=== PATIENT | female | born 1940 | race Caucasian/White ===

== ENCOUNTER → 2016-11-01 16:47 | Outpatient (CLI) | payer MEDICARE ==
[2016-10-08 13:16] VITALS: BMI 28.3
[~2016-11-01 16:47] MED LIST: ASPIRIN EC81 M1 PO; BUMEX 1 MG TAB1 MG PO; BUMEX2 MG PO; CORDARONE200 MG; CORDARONE200 MG PO; COREG12.5 MG PO; DEMADEX10 MG; DEMADEX10 MG PO; FERREX 150 PLUS1 CAP PO; FLORAJEN3 CAPS460 MG PO; GLIPIZIDE10 MG PO; GLUCOTROL XL 1010 MG PO; IPRAT-ALBUT 0.5-3 ML INH; ISOSORBIDE DINI20 MG; ISOSORBIDE DINI20 MG PO; PRINIVIL20 MG PO; PROTONIX40 MG PO; ROCALTROL0.25 MCG PO; ROCEPHIN 1 GM/D51 G1 IV; SYNTHROID150 MCG PO; SYNTHROID75 MCG PO; VIBRAMYCIN 100100 MG PO; VITAMIN D31000 UNIT PO; ZESTRIL40 MG PO; ZOCOR20 MG PO
[2016-11-01 17:15] LABS: BASOPHILS 0.9 % (0.0-2.0); EOSINOPHILS 2.3 % (0-7); HEMATOCRIT 29.2 % (36.0-48.0); HEMOGLOBIN 9.1 g/dL (12-16); IMMATURE GRANULOCYTES 0.5 % (0-5); LYMPHOCYTES 25.5 % (15-50); MCH 30.2 pg (26.0-34.0); MCHC 31.2 g/dL (31.0-37.0); MEAN PLATELET VOLUME 10.8 fL (7.4-10.4); MONOCYTES 11.1 % (2-11); NEUTROPHILS 59.7 % (40-80); PLATELET COUNT 147 10x3/uL (130-400); RBC 3.01 10x6/uL (4.00-5.40); RDW 17.6 % (11.5-14.5); WBC 2.2 10x3/uL (4.8-10.8)
== END | disposition home or self-care (01) ==
LOC: D.LABREF 16:47
PROVIDERS: Internal Medicine Hematology & Oncology
DX: N18.4 Chronic kidney disease, stage 4 (severe) (principal); I51.7 Cardiomegaly; D64.9 Anemia, unspecified

== ENCOUNTER → 2016-11-04 15:02 | Outpatient (CLI) | payer MEDICARE ==
[2016-10-08 13:16] VITALS: BMI 28.3
[2016-11-04 15:31] LABS: BASOPHILS 1.5 % (0.0-2.0); HEMATOCRIT 27.2 % (36.0-48.0); HEMOGLOBIN 8.5 g/dL (12-16); IMMATURE GRANULOCYTES 0.5 % (0-5); MCH 30.5 pg (26.0-34.0); MCHC 31.3 g/dL (31.0-37.0); MCV 97.5 fL (80.0-100.0); MEAN PLATELET VOLUME 11.3 fL (7.4-10.4); MONOCYTES 10.5 % (2-11); NEUTROPHILS 64.5 % (40-80); PLATELET COUNT 126 10x3/uL (130-400); RBC 2.79 10x6/uL (4.00-5.40); RDW 17.8 % (11.5-14.5)
== END | disposition home or self-care (01) ==
LOC: D.LABREF 15:02
PROVIDERS: Internal Medicine Hematology & Oncology
DX: N18.4 Chronic kidney disease, stage 4 (severe) (principal)

== ENCOUNTER 2016-11-11 08:08 | Day surgery (SDC) | payer MEDICARE ==
[~2016-11-11] VITALS: Ht 160 cm; Wt 63.5 kg
[~2016-11-11 08:08] MED LIST changes: -ZESTRIL40 MG PO
[2016-11-11] MEDS ORDERED: BUMEX 1 MG TAB1 MG PO (08:47)
[2016-11-11 08:58] VITALS: BP 172/80; Ht 160 cm; Wt 63.5 kg
--- NOTE | 2016-11-11 09:59 | NUR ---
3203 DR. JOEL TO SEE PATIENT AND MARKED RIGHT ARM RESERVED. CALLED CYN IN SURGERY TO INFORM RIGHT ARM FISTULA TODAY. IV STARTED TO LEFT WRIST AND BLOOD SENT TO LAB. DR. JOEL INFORMED PATIENT TOOK ASPIRIN 81 MG YESTERDAY AM. PATIENT HAS BRUISES OVER LEGS AND ARMS AND CHEST SHE STATES FROM JUST BEING IN THE HOSPITAL. PATIENT STABLE A WAITING FOR SURGERY
--- NOTE | 2016-11-11 10:08 | NUR ---
[address] JOEL PATIENT IS COMPLAINING OF BOTH CALVES HURTING, WANTS US TO MASSAGE THEM. DR. JOEL STATED NO MASSAGE. GIVEN TYLENOL FOR PAIN WHICH HAS HELPED
[2016-11-11 10:16] LABS: BASOPHILS 0.6 % (0.0-2.0); EOSINOPHILS 1.4 % (0-7); HEMATOCRIT 29.6 % (36.0-48.0); HEMOGLOBIN 9.4 g/dL (12-16); IMMATURE GRANULOCYTES 0.3 % (0-5); LYMPHOCYTES 15.1 % (15-50); MCH 30.3 pg (26.0-34.0); MCHC 31.8 g/dL (31.0-37.0); MCV 95.5 fL (80.0-100.0); MEAN PLATELET VOLUME 11.4 fL (7.4-10.4); MONOCYTES 11.1 % (2-11); NEUTROPHILS 71.5 % (40-80); PLATELET COUNT 138 10x3/uL (130-400); RDW 18.1 % (11.5-14.5); WBC 3.5 10x3/uL (4.8-10.8)
[2016-11-11 10:39] LABS: APTT 31.7 SECONDS (22.8-39.4); INR 1.23 (0.85-1.17); PROTIME 15.4 SECONDS (11.6-15.0)
[2016-11-11 10:41] LABS: ANION GAP 14.2 mmol/L (8-16); CALCIUM 8.1 mg/dL (8.5-10.1); CARBON DIOXIDE 27.2 mmol/L (21.0-32.0); CREATININE - SERUM 3.9 mg/dL (0.6-1.3); POTASSIUM - SERUM 5.4 mmol/L (3.5-5.1)
[2016-11-11] MEDS ORDERED: ZESTRIL40 MG PO (10:57)
--- NOTE | 2016-11-11 10:57 | NUR ---
1055 PATIENTS SON WENT OVER PATIENTS MEDS WITH NURSE BUT NURSE ALSO CALLED PATIENTS PHARMACY AND HAD SOME CONFLICTS SO CALLED SON ABDIEL TO BRING PATIENTS PILL BOTTLES AND HE BROUGHT ONLY LISINOPRIL TO NURSE. UNSURE OF PATIENTS MEDS. CALLED DR. CHARLTON ABOUT BLOOD SUGAR OF 74, NO NEW ORDERS NOTED
--- NOTE | 2016-11-11 11:45 | NUR ---
1130 PATIENT MORE DROWSY, WILL AROUSE, NOT SWEATY OR ANY COMPLAINTS VOICED, RECHECKED BLOOD SUGAR AT 69, INFORMED ANESTHESIA, ORDERED / AMP [id number]
--- NOTE | 2016-11-11 15:40 | NUR ---
OPA IN AIRWAY ON ADMIT
--- NOTE | 2016-11-11 16:33 | NUR ---
1600 BACK FROM RT ARM FISTULA CREATION. SOME SLEEPY BUT ROUSES. RESP EVEN AND NONLABORED. DENIES PAIN OR NAUSEA.
--- NOTE | 2016-11-11 19:10 | NUR ---
1745 SON HERE AND WENT OVER DISCHARGE INSTRUCTIONS AND VERBALLY UNDERSTANDS. SCRIPT NORCO 5 GIVEN TO SON AND REVIEWED MEDICATION. IV DCD BLED FROM SITE SO WRAPPED LEFT ARM WITH COBAN. INSTRUCTED TO ELEVATED RT ARM ON PILLOW. APPOINTMENT GONE OVER.
--- NOTE | 2016-11-11 19:13 | NUR ---
1655 SLEEPY EVEN AFTER HAD LIQUIDS AND JUICE. BLOOD SUGAR 119.
--- NOTE | 2016-11-11 19:13 | NUR ---
1800 SON HERE STATING WE HAD MOMS BAG NEW OF MEDICATION. CALLED SARAH LARIOS R.N. AND SHE STATED ONLY HAD A BOTTLE OF LISINOPRIL AND DENTURES AND DENTURE COMBINATION PRESSER. NO OTHER MEDS. TOLD PATIENT AND ABDIEL SON CALLED NURSE THAT GOT HIM READY AND ONLY MED WAS LISINOPRIL HE ABDIEL THAN GAVE AN APOLOGY AND STATED MOM I MUST HAVE GRABBED THE WRONG MEDICATION BAG.
--- NOTE | 2016-11-11 19:16 | NUR ---
181 DISCHARGED TO HOME WITH SON AFTER DRESSED PATIENT. TO [facility].
--- NOTE | 2016-12-29 10:17 | OP ---
PATIENT NAME: SAMANTA MARI MEDICAL RECORD: [id number] :42 LOCATION:D.OPS ADMISSION DATE: SURGEON: GERALDINE JOEL MD DATE OF OPERATION: 11/11/2016 PREOPERATIVE DIAGNOSIS: End-stage renal disease without chronic access for hemodialysis. POSTOPERATIVE DIAGNOSIS: End-stage renal disease without chronic access for hemodialysis. PROCEDURE: Creation of right radiocephalic arteriovenous fistula for hemodialysis access. SURGEON: Geraldine Joel MD COUNTER INTELLIGENCE TECHNICIAN: None. BLOOD LOSS: Minimal. ANESTHESIA: General. COMPLICATIONS: None. The risks, possible complications, and alternatives to the procedure were explained to the patient. She elects to proceed. OPERATIVE COURSE: The patient was conveyed to the operating room electively on 11/11/2016. General anesthesia was induced by anesthesia staff. The right upper extremity was abducted at 90 degrees in relation to the patient's trunk. The right wrist was supinated. An axial incision was accomplished over the radial artery on the volar surface of the forearm and wrist. I dissected down to the radial artery which was encircled with vessel loops. I dissected down to a cephalic vein, which was of poor quality. It was ligated distally. I ligated some side branches and then divided the side branches between the ligatures. A longitudinal arteriotomy was accomplished after intravenous heparin was given. A side-to-end arteriovenous anastomosis was then fashioned with a running 7-0 Prolene suture. I then flushed out through the fistula. There was a good thrill within the fistula. Dania was added to the wound for additional hemostasis. The subcutaneous tissues were closed with interrupted 3-0 Vicryls. The skin was approximated with a running 3-0 Vicryl Rapide suture and then Dermabond. The patient was then extubated and conveyed to post-anesthesia care unit where she was in stable condition. She will be dismissed home on [place] for pain. I will see her in the office in 2-3 weeks. TRANSINT:[id number] Voice Confirmation ID: [id number] DOCUMENT ID: [id number] OPERATIVE REPORT [id number] SAMANTA MARI GERALDINE JOEL MD at 1017 CC: FE STRONG MD [id number] DICTATION DATE: 11/11/16 1512 RECORDING STUDIO INTERNSHIP: 11/11/16 1537 DEP SDC 11/11/16 [facility] [address] [place] [address]
== END 2016-11-11 18:10 | disposition home or self-care (01) ==
LOC: D.OPS 08:08
PROVIDERS: Anesthesiology
DX: N18.6 End stage renal disease (principal); E11.9 Type 2 diabetes mellitus without complications; I10 Essential (primary) hypertension; I50.9 Heart failure, unspecified

== ENCOUNTER 2016-11-28 07:02 | Inpatient (IN) | payer MEDICARE ==
[2016-11-28] VITALS (14 sets, daily range): BP systolic 98–130; BP diastolic 55–80; BMI 23.7
[~2016-11-28] VITALS: Ht 160 cm; Wt 69.1 kg
[~2016-11-28 07:02] MED LIST changes: +ZESTRIL40 MG PO
[2016-11-28 07:38] LABS: HEMATOCRIT 27.1 % (36.0-48.0); HEMOGLOBIN 8.7 g/dL (12-16); MCH 30.9 pg (26.0-34.0); MCHC 32.1 g/dL (31.0-37.0); MCV 96.1 fL (80.0-100.0); MEAN PLATELET VOLUME 10.9 fL (7.4-10.4); RBC 2.82 10x6/uL (4.00-5.40); RDW 18.9 % (11.5-14.5); WBC 2.4 10x3/uL (4.8-10.8)
[2016-11-28 07:41] LABS: PLATELET COUNT 99 10x3/uL (130-400)
[2016-11-28 07:47] LABS: APTT 31.3 SECONDS (22.8-39.4); INR 1.04 (0.85-1.17); PROTIME 13.4 SECONDS (11.6-15.0)
[2016-11-28 07:48] LABS: APPEARANCE CLEAR (CLEAR); BILIRUBIN NEGATIVE (NEGATIVE); COLOR YELLOW (YELLOW); GLUCOSE NEGATIVE (NEGATIVE); KETONE NEGATIVE (NEGATIVE); LEUKOCYTE ESTERASE NEGATIVE (NEGATIVE); NITRITE NEGATIVE (NEGATIVE); PROTEIN NEGATIVE (NEGATIVE); SPECIFIC GRAVITY 1.005 (1.005-1.020); UROBILINOGEN NORMAL (NORMAL)
[2016-11-28 07:59] LABS: ALBUMIN 1.9 g/dL (3.4-5.0); BILIRUBIN - TOTAL 0.54 mg/dL (0.2-1.3); CALCIUM 7.5 mg/dL (8.5-10.1); CARBON DIOXIDE 31.8 mmol/L (21.0-32.0); CREATININE - SERUM 4.5 mg/dL (0.6-1.3); POTASSIUM - SERUM 3.8 mmol/L (3.5-5.1); PROTEIN - SERUM 4.5 g/dL (6.4-8.2)
[2016-11-28 08:02] LABS: BASOPHILS 2 % (0.0-2.0); EOSINOPHILS 1 % (0-7); LYMPHOCYTES 13 % (15-50); MONOCYTES 2 % (2-11); NEUTROPHILS 81 % (40-80); PLATELET ESTIMATE DECREASED
[2016-11-28 08:03] LABS: ANISOCYTOSIS OCC; POIKILOCYTOSIS OCC
[2016-11-28 08:10] LABS: THYROID STIMULATING HORMONE 161.93 uIU/mL (0.36-3.74)
[2016-11-28 10:49] LABS: HEMOGLOBIN A1C 4.9 % (4.8-6.0)
[2016-11-28 14:53] LABS: HEMATOCRIT 29.9 % (36.0-48.0); HEMOGLOBIN 9.7 g/dL (12-16)
--- NOTE | 2016-11-28 15:56 | NUR ---
1530 REPORT TO JEFFRY TO GIVE TO KEKE
[2016-11-28 15:58] LABS: ERYTHROCYTE SEDIMENTATION RATE 4 mm/hr (0-30)
--- NOTE | 2016-11-28 18:25 | NUR ---
1015-RECIEVED PER FLOW [id number] TEMPERATURE CHECK-NO READING-WARM TO TOUCH-HEATED BLANKETS PLACED-INCONT DARK TARRY STOOL-POOR HISTORIAN-DR WHITFIELD AT BEDSIDE-SHOWN ALL SKIN/BRUISE TYPE TRAUMAS-R RADIAL WRIST-DR BALBUENA AT BEDSIDE AND ORDER RECIEVED-CONFIRMED WITH DR WHITFIELD TO GIVE 1 UNIT PRBC-BLOOD CONSENT OBTAINED FROM PT-PT STATED WANTS EVERYTHING DONE- 1045-R 20 G STARTED-PRBC STARTED TO INFUSE OVER 3HRS 1200-RETURN CALL FROM DR GUERRIER-PT REMAINED NPO FOR PLANNED EGD-CONSENT OBTAINED FROM PT -REQUESTED TO CALL SON-ATTEMPTED TELEPHONE NUMBER GIVEN-CONT BUSY SIGNAL-PT STATED OH YA-HE FORGOT TO PAY THE BILL-NURSING RADIO ADJUSTER NOTIFIED OF PLANNED BEDSIDE EGD 1330-YARN HANDLER AT BEDSIDE FOR E
--- NOTE | 2016-11-28 18:31 | NUR ---
1330-PRBC INFUSED-SITE SALINE LOCKED-TOBACCO PACKER AT [facility]-ASSESSED PT 1330-DR SINHA IN UNIT AND INFORMED OF CONSULT-GIVEN NAME AND RM NUMBER- [id number]-DR GUERRIER CALLED UNIT-INFORMED STAFF PT ATE AT HOME PRIOR TO ADMIT-REGLAN 10MG IVPB OVER 1 HR STARTED DIRECTED 1515-EGD SET UP IN PROGRESS 1600-PROCEDURE COMPLETED-
--- NOTE | 2016-11-28 18:36 | NUR ---
1700-PT AWAKE ALERT- 1800-REQUESTING PO PAIN MED -DR WHITFIELD NOTIFIED OF SAME AND UPDATE GIVEN-INFORMED OF NOT ABLE TO READ TEMPERATURE-INC SYNTHROID DOSE-EGD RESULTS
--- NOTE | 2016-11-28 19:20 | NUR ---
RECEIVED PATIENT AWAKE IN BED WITH ULTRASOUND BEING PERFORMED AT BEDSIDE. PATIENT DISORIENTED TO PLACE/TIME, DEMEANOR IS PLEASANT. EYES PERRLA AT 4MM WITH BRISK RESPONSE, SCLERA IS WHITE. ORAL/NASAL MUCOSA IS MOIST AND INTACT. S1/S2 NOTED WITH PATIENT NSR ON TELEMETRY, RYTHMIC AND REGULAR. PATIENT HAS PACEMAKER/DEFIBRILLATOR NOTED IN UPPER CHEST. LUNG SOUNDS ARE CLEAR ALL ROBLEDO, BREATHING IS EVEN AND EFFORTLESS. ABDOMEN IS SOFT AND ROUND, BOWEL SOUNDS ACTIVE X4. WEAKNESS NOTED IN ALL EXTREMITIES, ALL PULSES WEAKLY PALPABLE. PATIENT ABLE TO VOID ON BEDPAN, NO ERYTHEMA OR SWELLING NOTED IN GENITAL AREA. PATIENT HAS BRUISING ON UPPER CHEST LACERATIONS ON R ARM, PT STATES BRUISING FROM PREVIOUS FALL AND SCRATCHES ARE FROM PET AT HOME. SCD'S OFF, PATIENT COMPLAINED OF PAIN AND WANTED REMOVED. PATIENT STATES PAIN 2/10 ALL OVER, REPOSITIONING PROVIDED RELIEF. PATIENT DENIES OTHER NEEDS AT THIS TIME, ALL VSS AND WILL CONTINUE TO MONITOR.
--- NOTE | 2016-11-28 20:46 | CN ---
PATIENT NAME:SAMANTA OWEN MEDICAL RECORD: [id number] : 42 LOCATION:[id number] ADMIT DATE: 11/28/16 ACCOUNT: [id number] CONSULTING PHYSICIAN: RUBIN GUERRIER MD REFERRING PHYSICIAN: TALITA WHITFIELD DO DATE OF CONSULTATION: 11/28/2016 ATTENDING PHYSICIAN: Talita Whitfield MD HISTORY OF PRESENT ILLNESS: Ms. Owen is a pleasant 76-year-old woman with a history of hypertension, congestive heart failure, cardiac arrhythmia and chronic kidney disease, who was brought by EMS to the Emergency Department secondary to syncope associated with hypoglycemia. The paramedics had been to her house twice to address hypoglycemia. During her evaluation in the Emergency Room, she was noted to have black melenic stools. Her hemoglobin is relatively stable from the previous admissions. She has a history of pancytopenia. She sees physicians both here and in [place]. She has seen Dr. Pretty (surgical asst) and Dr. Arrieta (information clerk brokerage) in the recent past. PAST MEDICAL HISTORY: Congestive heart failure with exacerbation in September 2016, pancytopenia, diabetes mellitus, hypertension, congestive heart failure, cardiac arrhythmia, pneumonia and hypothyroidism. PAST SURGICAL HISTORY: Cholecystectomy, hernia repair, pacemaker/defibrillator placement, spinal fracture, but no followup surgeries and left shoulder fracture, no surgeries. ALLERGIES: No known drug allergies. HOME MEDICATIONS: Protonix 40 mg p.o. daily, DuoNeb inhaler, Ferrex 150 mg plus, Synthroid 150 mcg daily and acidophilus. FAMILY HISTORY: No known GI cancer. SOCIAL HISTORY: No alcohol. PHYSICAL EXAMINATION: VITAL SIGNS: Temperature is 97.9, heart rate 60, respirations 18, blood pressure 125/70. SKIN: No rash or jaundice, but multiple extensive ecchymoses across her chest and arms. HEENT: Conjunctivae are anicteric. Oral cavity is clear, edentulous. NECK: No JVD or bruits. CARDIOVASCULAR: Regular rhythm, normal rate. No murmur, rub or gallop. LUNGS: No wheezes or crackles. ABDOMEN: Normoactive bowel sounds, soft, nontender and nondistended. No appreciable hepatosplenomegaly or hepatic masses. EXTREMITIES: She has got lesions on her right wrist with a large eschar overlying a hematoma with some edema and surrounding erythema. LABORATORY DATA: White blood cell count 2.4, hemoglobin 8.7, hematocrit 27.1 and platelets of 99,000. MCV 96.1. INR is 1.04. PT is 13.4, PTT is 31.3. Sodium 145, potassium 3.8, chloride 107, CO2 of 31.8, BUN 63, creatinine 4.5, CONSULT REPORT [id number] SAMANTA OWEN glucose 124, calcium 7.5, total bilirubin 0.54, alkaline phosphatase 193, AST 26, ALT 17, total protein 4.5 and albumin 1.9. TSH is 161.93. Chest x-ray one view shows cardiomegaly and mild central vascular congestion with a small left pleural effusion, no pronounced interval changes or differences in inflation (compared to 10/03/2016). ASSESSMENT: 1. Melenic stools. She has been on iron supplementation, but rule out gastric or duodenal ulcer versus lower gastrointestinal etiology. 2. Pancytopenia with hemoglobin not far from baseline. 3. Hypothyroidism with markedly elevated TSH. 4. Chronic kidney disease. RECOMMENDATIONS: 1. Protonix 80 mg IV loading dose followed by 8 mg an hour drip. 2. Serial hemoglobin and hematocrit every 8 hours. 3. EGD. TRANSINT:[id number] Voice Confirmation ID: [id number] DOCUMENT ID: [id number] RUBIN GUERRIER MD at 2046 CC: TALITA WHITFIELD DO and FE PRETTY MD [id number] DICTATION DATE: 11/28/16 1559 DISABILITY REPRESENTATIVE: 11/28/162039 ADM IN [place] [id number] [place] [address]
--- NOTE | 2016-11-28 21:00 | NUR ---
NO VISITORS AT THIS TIME, PATIENT RESTING IN BED WITH EYES CLOSED AFTER ULTRASOUND. ALL VSS AND WILL CONTINUE TO MONITOR.
[2016-11-28 22:48] LABS: HEMATOCRIT 29.1 % (36.0-48.0); HEMOGLOBIN 9.3 g/dL (12-16)
--- NOTE | 2016-11-28 23:00 | NUR ---
REASSESSMENT COMPLETE PER FLOWSHEET, PATIENT RESTING IN BED WITH EYES CLOSED. PATIENT IS DISORIENTED TO TIME BUT IS AWARE OS SITUATION/LOCATION/SELF. BREATHING IS EVEN AND EFFORTLESS ON RA, OXYGEN SAT 95%. PATIENT REQUESTED PAIN MEDICATION DUE AT 0000 FOR PAIN, RATES PAIN 4/10 GENERALIZED ACHING. REPOSITIONED TO ASSIST WITH RELIEF, WILL REASSESS. DENIES OTHER NEEDS AT THIS TIME, WILL CONTINUE TO MONITOR.
[2016-11-29] VITALS (25 sets, daily range): BP systolic 91–134; BP diastolic 55–88; Ht 160 cm; Wt 69.1 kg
--- NOTE | 2016-11-29 01:00 | NUR ---
PATIENT RESTING IN BED WITH EYE CLOSED, BREATHING IS EVEN AND EFFORTLESS. FULL BED BATH/LINEN CHANGE PERFORMED, NO FURTHER NEEDS AT THIS TIME. ALL VSS AND WILL CONTINUE TO MONITOR.
--- NOTE | 2016-11-29 03:00 | NUR ---
REASSESSMENT COMPLETE PER FLOWSHEET, PATIENT IS RESTING IN BED WITH EYES CLOSED BREATHING IS EVEN AND EFFORTLESS. PATIENT IS DISORIENTED TO TIME BUT IS AWARE OF SITUATION/PLACE/PERSON. PATIENT O2 SAT IS 96% ON RA, PATIENT IS NSR ON TELEMETRY. PATIENT DENIES PAIN OR OTHER NEEDS AT THIS TIME, ALL VSS AND WILL CONTINUE TO MONITOR.
[2016-11-29 04:49] LABS: BASOPHILS 0.4 % (0.0-2.0); EOSINOPHILS 2.8 % (0-7); HEMOGLOBIN 9.6 g/dL (12-16); LYMPHOCYTES 12.8 % (15-50); MCH 30.1 pg (26.0-34.0); MEAN PLATELET VOLUME 10.9 fL (7.4-10.4); PLATELET COUNT 91 10x3/uL (130-400); RBC 3.19 10x6/uL (4.00-5.40); RDW 18.8 % (11.5-14.5); WBC 2.8 10x3/uL (4.8-10.8)
--- NOTE | 2016-11-29 05:00 | NUR ---
PATIENT RESTING IN BED WITH EYES CLOSED, BREATHING IS EVEN AND EFFORTLESS. PATIENT DENIES PAIN OR OTHER NEEDS AT THIS TIME, ALL VSS AND WILL CONTINUE TO MONITOR.
[2016-11-29 05:10] LABS: ALBUMIN 1.9 g/dL (3.4-5.0); ANION GAP 10.4 mmol/L (8-16); BILIRUBIN - TOTAL 0.45 mg/dL (0.2-1.3); CALCIUM 7.2 mg/dL (8.5-10.1); CARBON DIOXIDE 30.3 mmol/L (21.0-32.0); CREATININE - SERUM 4.3 mg/dL (0.6-1.3); MAGNESIUM - SERUM 1.9 mg/dL (1.8-2.4); PHOSPHOROUS 3.8 mg/dL (2.5-4.9); POTASSIUM - SERUM 3.7 mmol/L (3.5-5.1); PROTEIN - SERUM 4.5 g/dL (6.4-8.2)
--- NOTE | 2016-11-29 09:04 | NUR ---
PT AWAKE, SITTING UP EATING BREAKFAST. SON AT BEDSIDE. MORNING MEDICATIONS TAKEN WITH NO DIFFICULTY.
--- NOTE | 2016-11-29 09:28 | NUR ---
PT SPILLED ORANGE JUICE ON HER. BATH PROVIDED. NEW LINENS PROVIDED.
--- NOTE | 2016-11-29 10:06 | NUR ---
WHEN SPEAKING TO SON EARLIER HE ASKED ME ABOUT THE WOUND ON THE PATIENT'S RIGHT WRIST. HE ASKED IF THAT WAS HER FISTULA. NO INFORMATION REGARDING A FISTULA WAS PASSED ON TO ME IN REPORT. WE HAD BEEN TOLD IT WAS FROM A DOG SCRATCH. SON SAYS PT HAD RECENTLY BEEN TO [facility] FOR A FISTULA PLACEMENT. LOOKED UP PAST VISITS AND FOUND THAT PT HAD BEEN IN ON October TO SEE DR JOEL AND HAD A RIGHT WRIST RC FISTULA PLACED. PAGED DR BALBUENA TO LET HIM KNOW SINCE HE WAS ON CONSULT LIST TO SEE PATIENT THAT I WOULD BE CONTACTING DR JOEL ABOUT THIS PATIENT. AWAITING RETURN CALL FROM DR JOEL.
--- NOTE | 2016-11-29 11:20 | NUR ---
WOUND CARE NURSE IN TO SEE PATIENT AND ADDRESS WOUND AT RIGHT WRIST
--- NOTE | 2016-11-29 11:43 | NUR ---
WOUND CARE CONSULT: PT HAS MUCH BRUISING AND MANY SCABS FROM HEAD TO TOES. ON RIGHT WRIST THERE IS AN OPEN WOUND MEASURING 7CM X 2CM X 0.9CM. THERE IS OLD DRIED BLOOD AND SOME NECROTIC TISSUE NOTED. THERE IS AN ODOR. RIGHT FOREARM IS AN OPEN WOUND MEASURING 2.5CM X 2CM X 0.2CM. WOUND BED IS PINK AND EDGES ARE PEELING. COVERED BOTH WITH SILVER ALGINATE AND LOOSELY SECURED WITH KERLIX. WILL CONTINUE TO MONITOR
--- NOTE | 2016-11-29 11:51 | NUR ---
CALLED DR WHITFIELD OFFICE TO LET HIM KNOW OF GLUCOSE VALUE AND AMP D50 GIVEN. ASKED FOR PERAMETERS/ORDERS. SPOKE WITH MAXINE. ONLY NEW ORDER GIVEN WAS TO GIVE ORANGE JUICE AND CONTINUE TO MONITOR.
--- NOTE | 2016-11-29 12:53 | NUR ---
PT ASSISTED ON TO NEW BEDPAN FOR UA. SPECIMEN TAKEN TO LAB. PT C/O PAIN IN SIDE AND CHEST, ASKS FOR NORCO. STILL EATING HER LUNCH AT THIS TIME.
[2016-11-29 13:13] LABS: APPEARANCE HAZY (CLEAR); BACTERIA MANY /hpf (NONE SEEN); BILIRUBIN NEGATIVE (NEGATIVE); COLOR YELLOW (YELLOW); EPITHELIAL CELLS 0-5 /hpf (0-5); GLUCOSE NEGATIVE (NEGATIVE); KETONE NEGATIVE (NEGATIVE); LEUKOCYTE ESTERASE TRACE (NEGATIVE); MUCUS <1+ /lpf (NONE SEEN); NITRITE POSITIVE (NEGATIVE); PROTEIN 1+ mg/dL (NEGATIVE); RED CELLS - URINE 0-5 /hpf (0-5); UROBILINOGEN NORMAL (NORMAL); WHITE CELLS - URINE 0-5 /hpf (0-5)
[2016-11-29 13:15] LABS: CREATININE - URINE 36.8 mg/dL (30-125); PROTEIN - URINE 35.5 mg/dL (0.0-11.9)
--- NOTE | 2016-11-29 13:51 | NUR ---
SPOKE WITH DR JOEL. WANTS PT NPO AFTER MIDNIGHT IN CASE NEEDS TO DEBRIDE
--- NOTE | 2016-11-29 15:04 | CN ---
PATIENT NAME:SAMANTA MARI MEDICAL RECORD: [id number] : 44 LOCATION:[facility].2311 ADMIT DATE: 11/28/16 ACCOUNT: [id number] CONSULTING PHYSICIAN: PILAR BALBUENA MD REFERRING PHYSICIAN: TALITA WHITFIELD DO DATE OF CONSULTATION: 11/28/2016 Surgical Consultation REASON FOR CONSULTATION: Right wrist wound. HISTORY OF PRESENT ILLNESS: The patient was admitted to the hospital for severe hypoglycemia and fall. The patient was noted to have maroon-colored stool during her ER evaluation. The patient is very confused. She says that she has a dog wound on her right wrist that has been there for several weeks. By investigation in the chart, through chart review and discussion with the nurse and son, the patient had a fistula performed in the right wrist almost 3 weeks ago. The patient was just discharged from the hospital for an episode of CHF exacerbation. She complains of some pain at her right wrist. PAST MEDICAL HISTORY: Diabetes, hypertension, congestive heart failure, pacemaker, and recurrent pneumonia. PAST SURGICAL HISTORY: Gallbladder, hernia, pacemaker, right forearm fistula. ALLERGIES: No known drug allergies. HOME MEDICATIONS: Include carvedilol, Zocor, amiodarone, calcitriol, aspirin, cholecalciferol, Imdur, Bumex, and lisinopril. FAMILY HISTORY: Unobtainable. SOCIAL HISTORY: Unobtainable. REVIEW OF SYSTEMS: Unobtainable secondary to patient's confusion. PHYSICAL EXAMINATION: VITAL SIGNS: Temperature 97.9, heart rate 60, respirations 18, and blood pressure 125/70. GENERAL: This is a cachectic elderly female in mild distress. PSYCHIATRIC: She is confused and disoriented. EYES: Extraocular muscles are intact. EAR, NOSE, AND THROAT: Poor dentition. Dry mucous membranes. CARDIOVASCULAR: Normal sinus rhythm. PULMONARY: Clear to auscultation bilaterally. ABDOMEN: Soft, nontender, and nondistended. EXTREMITIES: There is a large 5 x 4 cm eschar over the right wrist. No palpable thrill. She has got severe ecchymosis of all 4 extremities. NEUROLOGIC: She is awake and alert, but confused. LABORATORY DATA: Reviewed. Please see electronic medical record for full list of laboratory values. IMAGING: Chest x-ray reviewed, which shows CHF with left pleural effusion. CONSULT REPORT [id number] SAMANTA MARI IMPRESSION: 1. A 76-year-old female admitted to the hospital with hypoglycemia, chronic renal failure, congestive heart failure, gastrointestinal bleed and right forearm postoperative wound. The patient has been admitted to the ICU. The patient is being followed by nephrology. GI has been consulted for evaluation of gastrointestinal bleeding. 2. Anemia. Continue serial H&H. 3. IV fluids. 4. Type and screen. 5. Right wrist wound, will likely need debridement. We will discuss with my partner, Dr. Smith. He returns on Tuesday for wound debridement and evaluation of the fistula. TRANSINT:[id number] Voice Confirmation ID: [id number] DOCUMENT ID: [id number] PILAR BALBUENA MD at 1504 CC: [id number] DICTATION DATE: 11/29/16 1216 MANUFACTURING MAINTENANCE MANAGER: 11/29/16 1454 ADM IN [facility] [address] [place] [address]
--- NOTE | 2016-11-29 16:46 | OP ---
PATIENT NAME: SAMANTA OWEN MEDICAL RECORD: [id number] :42 LOCATION:[facility] D.2311 ADMISSION DATE:11/28/16 SURGEON: RUBIN GUERRIER MD DATE OF OPERATION: 11/28/2016 PROCEDURE: EGD with biopsy. ATTENDING PHYSICIAN: John Freire MD INDICATIONS: Ms. Owen is a pleasant 76-year-old woman who was brought to the Emergency Department by EMS after multiple falls. She has been having melenic stools, has history of pancytopenia and her hemoglobin is near baseline. She has had no abdominal pain or hematemesis. She presents for inpatient EGD. PREMEDICATIONS: Total IV anesthesia (history of cardiac arrhythmia status post pacemaker placement, defibrillator and congestive heart failure), propofol 100 mg. INSTRUMENT: Olympus video gastroscope. PROCEDURE AND FINDINGS: After receiving informed consent, Ms. Owen's posterior pharynx was anesthetized with Cetacaine spray, placed in left lateral decubitus position and sedated as per anesthesia. After achieving adequate level of sedation, gastroscope was introduced per orally and advanced to the duodenum without difficulty. There was a small amount of retained old food in the esophagus as well as in the fundus of the stomach. There are no esophageal strictures present. A small hiatal hernia was noted. In the prepyloric region were 4 small mildly bleeding angioectasias that were cauterized with good results and hemostasis. There is minimal prepyloric and antral erythema and antral biopsies were obtained to rule out Helicobacter pylori. The fundus was obscured with old food. There were several waves of peristaltic activity noted in the stomach. Pylorus was patent and competent. Duodenal mucosa was without erythema or ulcers, appeared normal through the second portion. Gastroscope was then withdrawn. Ms. Owen tolerated the procedure well, no immediate complications. ASSESSMENT: 1. 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 2. Small hiatal hernia. 3. Four small bleeding angioectasias in the prepyloric region status post cauterization. 4. Mild gastritis. RECOMMENDATIONS: 1. Reglan 5 mg a.c. 2. Pepcid 40 mg p.o. b.i.d. 3. Diabetic full liquid diet. TRANSINT:[id number] Voice Confirmation ID: [id number] DOCUMENT ID: [id number] OPERATIVE REPORT [id number] SAMANTA OWEN TERRI MD at 1646 CC: [id number] DICTATION DATE: 11/28/16 162 CROP SCOUT: 11/28/162119 ADM IN [place] [id number] [place] [id number]
--- NOTE | 2016-11-29 16:53 | NUR ---
CM VISITED/ PATIENT AT THE BEDSIDE. SHE IS ALERT AND ORIENTED HOWEVER IS VERY EVASIVE W/ HER ANSWERS. SHE HAS A [place] ADDRESS LISTED. WHEN QUESTIONED SHE STATES SHE NO LONGER HAS THAT HOME. WHEN ASK HER NEW ADDRESS SHE DECLINED TO GIVE THAT INFORMATION. STATES SHE HAS A HOME IN [place]OWN. IT HAS NO STAIRS. STATES SHE HAD HOME HEALTH IN [place] AT ONE TIME BUT THEY STOP COMING BECAUSE SHE DID NOT HAVE A PCP. DENIES ANY DME. HAS MUTIPLE BRUISES W/ VARIOUS EXPLANATIONS OF HOW SHE OBTAINED THEM. WILL NOT DISCUSS W/ ANY DETAIL. STATES SHE DOES NOT HAVE FREQUENT FALLS. WILL ONLY ACKNOWLEDGE SHE HAS A SON. PCP- NONE PHARMACY- [facility]- A[facility]IEL [facility]AME[facility]- [phone]- NO ANSWER WHEN CALLED. COULD NOT LEAVE A MSG. FISTULA- PLACED 11/11/[address] JOEL SON HAS PROVIDED TRANSPORTATION AT DISCHARGE. PATIENT PLAN AT DISCHARGE IS TO HOME. DECLINING ANY HOME HEALTH SERVICES. STATES SHE NEEDS HELP OBTAINING A PCP.
--- NOTE | 2016-11-29 17:00 | NUR ---
PT SITTING UP IN BED EATING HER DINNER. ASKING FOR MORE PAIN MEDICATION. NEXT TIME CAN BE ADMINISTERED IS ALMOST 7PM, LET HER KNOW.
--- NOTE | 2016-11-29 19:15 | NUR ---
RECEIVED PATIENT IN BED WITH EYES CLOSED, ASSESSMENT COMPLETE PER FLOWSHEET. PATIENT IS DISORIENTED TO TIME BUT IS AWARE OF CURRENT SITUATION, DEMEANOR IS PLEASANT. EYES PERRLA @ 4MM WITH BRISK RESPONSE, SCLERA IS WHITE. ORAL/NASAL MUCOSA IS MOIST AND INTACT, TONGUE IS MIDLINE. S1/S2 NOTED WITH PATIENT NSR ON TELEMETRY, PATIENT HAS IMPLANTED PACEMAKER/DEFIBRILLATOR. BREATHING IS EVEN AND EFFORTLESS, LUNG SOUNDS CLEAR ALL ROBLEDO. ABDOMEN IS SOFT AND ROUND, NON-TENDER TO PALPATION. PATIENT USES BEDPAN FOR VOIDING, NO ERYTHEMA OR IRRITATION NOTED. WEAKNESS NOTED ALL EXTREMITIES, FULL ROM ALL EXTREMITIES. STATES PAIN 4/10 IN CHEST AREA "WHERE SHE FELL", PAIN MEDICATION GIVEN PRN AND WILL REASSESS. PATIENT HAS BRUISING/SORES PRESENT OVER WHOLE BODY, R WRIST LACERATION TO BE DEBRIDED IN AM. PATIENT DENIES OTHER NEEDS AT THIS TIME, ALL VSS AND WILL CONTINUE TO MONITOR.
--- NOTE | 2016-11-29 21:00 | NUR ---
NO VISITORS AT THIS TIME, PATIENT RESTING IN BED WITH EYES CLOSED. DENIES PAIN OR OTHER NEEDS AT THIS TIME, WILL CONTINUE TO MONITOR.
--- NOTE | 2016-11-29 22:40 | NUR ---
PATIENT UNABLE TO FIND COMFORTABLE POSITION, DEMANDED TO GET UP TO RECLINER AT BEDSIDE. ASSISTED TO CHAIR, SITTING UP PT STATES "MORE COMFORTABLE". PT ASKED TO REMIAN IN CHAIR "TO SLEEP", ALL VSS STABLE AND WILL CONTINUE TO MONITOR.
--- NOTE | 2016-11-29 23:00 | NUR ---
REASSESSMENT COMPLETE PER FLOWSHEET, PATIENT SITTING UP IN CHAIR AT BEDSIDE. PATIENT C/O OF DISCOMFORT AND PAIN 02/07, REPOSITIONED FOR COMFORT AND WILL EXPLORE OTHER OPTIONS. BREATHING IS EVEN AND UNLABORED, O2 SAT 97% DENIES OTHER NEEDS AT THIS TIME, ALL VSS AND WILL CONTINUE TO MONITOR.
[2016-11-30] VITALS (24 sets, daily range): BP systolic 84–130; BP diastolic 54–84
--- NOTE | 2016-11-30 00:05 | NUR ---
PATIENT RETURNED TO BED, ABLE TO AMBULATE WITH 1 PERSON ASSIST. GAIT IS UNSTEADY AND SHUFFLING. NO FURTHER NEEDS AT THIS TIME, ALL VSS AND WILL CONTINUE TO MONITOR.
--- NOTE | 2016-11-30 03:00 | NUR ---
REASSESSMENT COMPLETE PER FLOWSHEET, PATIENT LAYING IN BED WITH EYES OPEN WATCHING TV. PATIENT IS DISORIENTED TO TIME BUT AWARE OF SITUATION/PLACE/PERSON. BREATHING IS EVEN AND EFFORTLESS, OXYGEN SAT 98% ON RA. PATIENT C/O PAIN IN UPPER CHEST WHERE BRUISE IS LOCATED, RATES PAIN 6/10. PRN PAIN MEDICATION GIVEN AND PATIENT REPOSITIONED FOR COMFORT. PATIENT DENIES OTHER NEEDS AT THIS TIME, ALL VSS AND WILL CONTINUE TO MONITOR.
[2016-11-30 04:23] LABS: BASOPHILS 0.8 % (0.0-2.0); EOSINOPHILS 3.1 % (0-7); HEMATOCRIT 29.1 % (36.0-48.0); HEMOGLOBIN 9.4 g/dL (12-16); LYMPHOCYTES 12.7 % (15-50); MCH 30.2 pg (26.0-34.0); MCHC 32.3 g/dL (31.0-37.0); MCV 93.6 fL (80.0-100.0); MEAN PLATELET VOLUME 10.2 fL (7.4-10.4); MONOCYTES 7.3 % (2-11); NEUTROPHILS 76.1 % (40-80); PLATELET COUNT 79 10x3/uL (130-400); RBC 3.11 10x6/uL (4.00-5.40); RDW 18.8 % (11.5-14.5); WBC 2.6 10x3/uL (4.8-10.8)
--- NOTE | 2016-11-30 04:52 | NUR ---
PATIENT RESTING IN BED WITH EYES OPEN WATCHING TV, BREATHING IS EVEN AND EFFORTLESS. PATIENT REQUESTED SCD TAKEN OFF BECAUSE "THEY HURT MY LEGS", REMOVED BUT EXPLAINED TO PATIENT NEED TO WEAR OFTEN POSSIBLE. PATIENT STATES PAIN 2/10 IN CHEST, DOES NOT REQUIRE ANYTHING AT THIS TIME. NO FURTHER NEEDS AT THIS TIME, ALL VSS AND WILL CONTINUE TO MONITOR.
[2016-11-30 04:54] LABS: ALBUMIN 1.8 g/dL (3.4-5.0); ANION GAP 8.5 mmol/L (8-16); BILIRUBIN - TOTAL 0.5 mg/dL (0.2-1.3); CARBON DIOXIDE 30.5 mmol/L (21.0-32.0); CREATININE - SERUM 4.3 mg/dL (0.6-1.3); MAGNESIUM - SERUM 1.9 mg/dL (1.8-2.4); PHOSPHOROUS 4.4 mg/dL (2.5-4.9); PROTEIN - SERUM 4.6 g/dL (6.4-8.2)
--- NOTE | 2016-11-30 05:59 | NUR ---
PATIENT BS CHECKED RESULT WAS 78. PATIENT IS NPO FOR POSSIBLE DEBRIDEMENT IN AM, WILL RECHECK IN 30 MINS.
--- NOTE | 2016-11-30 07:14 | NUR ---
SHIFT ASSESSMENT COMPLETE. SEE FLOWSHEET FOR FINDINGS. PT RESTING QUIETLY. VOICES NO COMPLAINTS. TEMPERATURE OF 96.6 TEMPORAL. D5 1/2NS RUNNING AT 50ML/HR IN LEFT AC. NO SCD'S.
--- NOTE | 2016-11-30 10:09 | NUR ---
I ATTEMPTED TO VISIT WITH PATIENT REGARDING DISCHARGE PLANNING ASSESSMENT. PATIENT SAID THAT EVERYONE KEEPS ASKING HER QUESTIONS. SHE STATES SHE WANTS ME TO LEAVE HER ROOM AND STOP TALKING TO HER. SHE LITERALLY TOLD ME TO GET OUT OF HER ROOM. CM TO FOLLOW.
--- NOTE | 2016-11-30 10:36 | NUR ---
PT MOST RECENT BLOOD GLUCOSE IS 41. PT HAD BEEN NPO FOR POSSIBLE DEBRIDEMENT OF WOUND. NO DEBRIDEMENT TO BE PERFORMED. TRAY WAS ORDERED. PT WAS PROVIDED WITH GRAPE JUICE, CRACKERS AND PEANUTBUTTER REQUESTED. TRAY WAS ALSO GIVEN TO PATIENT. WILL CONTINUE TO MONITOR.
--- NOTE | 2016-11-30 11:27 | NUR ---
BLOOD GLUCOSE RECHECKED. READING OF 60. ENCOURAGED TO FINISH HER JUICE. SHE ASKED FOR MORE PEANUTBUTTER.
--- NOTE | 2016-11-30 12:30 | NUR ---
PT SITTING UP IN BED FOR LUNCH. SALAD PROVIDED SHE REQUESTED.
--- NOTE | 2016-11-30 12:57 | NUR ---
CALLED DR WHITFIELD REGARDING PT BLOOD SUGAR LEVELS AND MOVING TO THE FLOOR. IS NOT COMFORTABLE WITH PT LEAVING ICU AT THIS TIME. WILL CONTINUE TO MONITOR CLOSELY FOR HYPOGLYCEMIC EPISODES
--- NOTE | 2016-11-30 13:45 | NUR ---
PT SLEEPING AT THIS TIME. NO DISTRESS NOTED. BED LOW. SIDE RAILS X2
--- NOTE | 2016-11-30 15:27 | NUR ---
PT SITTING UP IN CHAIR AT BEDSIDE. HAVE ATTEMPTED TO CALL HER SON SEVERAL TIMES AT THE NUMBER WE HAVE LISTED, BUT IT IS ALWAYS BUSY. SHE DOES NOT KNOW OF ANY OTHER NUMBER TO REACH HIM BY. C/O PAIN AT LEVEL OF 9 IN CHEST AND SIDE.
--- NOTE | 2016-11-30 15:35 | NUR ---
PT ASKING ME TO GET OUT LONG ENOUGH TO GO BY HER HOUSE TO GET HER PURSE AND HER CELL PHONE. TOLD HER SHE HAD TO STAY IN THE HOSPITAL UNTIL WE CAN GET HER BLOOD SUGARS BETTER REGULATED. SHE THEN ASKED ME TO GO TO HER HOUSE TO GET HER THINGS. TOLD HER I WAS WORKING AND NOT ALLOWED TO GO TO PATIENT'S HOMES. SHE SAYS SHE LIVES AT [address] [place] [address] WITH HER SON AND THERE SHOULD BE A BLUE CAR AND A SILVER CAR THERE.
--- NOTE | 2016-11-30 17:18 | NUR ---
PT ASKING TO SEE THE DOCTOR. WANTS HIM TO COME BACK AND TELL HER WHEN SHE IS GOING HOME. DOES NOT REMEMBER HIM (DR JOEL) COMING TO SEE HER TODAY. ALSO DOES NOT RECOGNIZE THAT SHE IS IN THE SAME ROOM SHE WAS YESTERDAY BY SAYING "TURNER NEVER SEEN THIS ROOM BEFORE" AND "WHERE'S THE BIG PICTURE THAT IS SUPPOSED TO BE ON THE WALL, AND THE HEATER?" SAYS SHE NEEDS TO GET OUT OF HERE NOW. TRIED TO EXPLAIN THAT SHE HAS TO STAY UNTIL TOMORROW TO SEE IF THE DOCTOR FEELS SHE IS READY TO GO IF HER SUGARS ARE STEADY. WE STILL HAVE NOT BEEN ABLE TO REACH THE SON ON THE NUMBER PROVIDED.
--- NOTE | 2016-11-30 19:00 | NUR ---
REPORT RECIEVED, SHIFT ASSESSMENT COMPLETE, PT IS ALERT BUT CONFUSED, TO TIME AND SITUATION, ATTEMPTED TO REORIENT, ON RA WITH 97% O2 SAT. LUNGS CLEAR IN ALL LOBES, S1S2, CM-PACEMAKER, PATENT LEFT A/C PIC WITH D5 1/2 NS INFUSING VIA PUMP, ABDOMEN IS SOFT AND ROUND WITH HYPO BS, BP AT BEDSIDE, BRUISING AND SCABS NOTED ALL OVER BODY, NO EDEMA NOTED, ALL PPP, VSS, CALL LIGHT IN REACH
[2016-11-30 19:10] LABS: SPE - A/G RATIO 1.1 (0.7-1.7); SPE - ALBUMIN 2.4 g/dL (2.9-4.4); SPE - ALPHA-1 GLOBULIN 0.2 g/dL (0.0-0.4); SPE - ALPHA-2 GLOBULIN 0.3 g/dL (0.4-1.0); SPE - BETA GLOBULIN 0.6 g/dL (0.7-1.3); SPE - M-SPIKE 0.2 g/dL (Not Observed); SPE - TOTAL PROTEIN 4.5 g/dL (6.0-8.5)
--- NOTE | 2016-11-30 23:25 | NUR ---
PT RESTLESS AND AGITATED, PULLING AT LINES, DR. ANDREA NOTIFIED, NEW ORDERS RECIEVED
[2016-12-01] VITALS (17 sets, daily range): BP systolic 102–154; BP diastolic 65–96
--- NOTE | 2016-12-01 01:20 | NUR ---
PT RESTING AT THIS TIME, WILL CON'T TO MONITOR
--- NOTE | 2016-12-01 03:20 | NUR ---
REASSESSMENT COMPLETE, NO CHANGES NOTED, WILL CON'T TO MONITOR
--- NOTE | 2016-12-01 05:10 | NUR ---
PT AWAKE AT THIS TIME, STILL CONFUSED, ATTEMPTED TO REORIENT,
[2016-12-01 06:10] LABS: BASOPHILS 0.8 % (0.0-2.0); EOSINOPHILS 4.1 % (0-7); HEMATOCRIT 32.1 % (36.0-48.0); HEMOGLOBIN 10.3 g/dL (12-16); IMMATURE GRANULOCYTES 0.3 % (0-5); LYMPHOCYTES 10.6 % (15-50); MCH 30.1 pg (26.0-34.0); MCHC 32.1 g/dL (31.0-37.0); MCV 93.9 fL (80.0-100.0); MEAN PLATELET VOLUME 10.4 fL (7.4-10.4); NEUTROPHILS 77.2 % (40-80); RBC 3.42 10x6/uL (4.00-5.40); RDW 18.7 % (11.5-14.5)
[2016-12-01 06:15] LABS: PLATELET COUNT 108 10x3/uL (130-400); WBC 3.9 10x3/uL (4.8-10.8)
--- NOTE | 2016-12-01 06:30 | NUR ---
UPTO CHAIR AT THIS TIME,
[2016-12-01 06:37] LABS: ALBUMIN 2.2 g/dL (3.4-5.0); ANION GAP 11.5 mmol/L (8-16); BILIRUBIN - TOTAL 0.48 mg/dL (0.2-1.3); CALCIUM 7.6 mg/dL (8.5-10.1); CARBON DIOXIDE 28.8 mmol/L (21.0-32.0); CREATININE - SERUM 4.4 mg/dL (0.6-1.3); POTASSIUM - SERUM 4.3 mmol/L (3.5-5.1)
[2016-12-01 06:55] LABS: PROTEIN - SERUM 5.8 g/dL (6.4-8.2)
--- NOTE | 2016-12-01 07:00 | NUR ---
PT SITTING UP IN CHAIR AT BEDSIDE. IS AWAKE AND ALERT. TRYING TO GET OUT OF CHAIR, WANTS TO GO HOME.
--- NOTE | 2016-12-01 07:34 | NUR ---
PT UP IN CHAIR AT BEDSIDE. BREAKFAST TRAY PROVIDED. DR HILL HAS BEEN IN TO SEE PATIENT.
--- NOTE | 2016-12-01 09:27 | NUR ---
ORDER RECEIVED FOR PLACEMENT AND ORDER FOR PSYCH EVAL. PATIENT PLACEMENT WILL NOT BE ATTEMPTED UNTIL AFTER PSYCH EVAL. PATIENT MAY GO TO INPATIENT PSYCH AND SHE WILL BE PLACED FROM THERE IF SHE IS ACCEPTED. CM TO FOLLOW.
--- NOTE | 2016-12-01 09:30 | NUR ---
PT HAS BANGED ARMS AGAINST CHAIR RAILS REPEATEDLY. HAS NEW OPEN SORES, BLEEDING. BANDAGES APPLIED TO BOTH ARMS ALONG WITH CLEANING FISTULA WOUND AT RIGHT WRIST AND DOING WET TO DRY DRESSING ON IT. PT HAS PULLED OUT HER IV. WANTS THE LEAD WAREHOUSE ASSOCIATE CALLED. SAYS WE ARE PART OF A CULT AND TRYING TO KILL HER. DOES NOT BELIEVE SHE IS IN THE HOSPITAL. HAS ASKED MULTIPLE PEOPLE TO CALL THE POLICE TO GET HER OUT OF HERE. REDIRECTING DOES NOT WORK. SHE IS EXTREMELY CONFUSED. REFUSED TO EAT BREAKFAST THIS MORNING BECAUSE SHE "HAD ALREADY EATEN BREAKFAST". SHE THREW HER FOOD IN THE FLOOR AND POURED HER JUICE OUT INTO THE FLOOR.
--- NOTE | 2016-12-01 09:36 | NUR ---
NUTRITION MONITORING & EVAL CHART REVIEWED. PT UP TO CHAIR. NURSING REPORTS PT WITH VERY LITTLE PO INTAKE AT BREAKFAST. WILL CONTINUE TO PROVIDE RENAL ADA DIET, MONITOR PT PROGRESS. RD FOLLOWING
--- NOTE | 2016-12-01 10:48 | NUR ---
PT IN BED AT THIS TIME. AGAIN HAS ASKED TO HAVE THE MESH WORKER CALLED. REFUSES HER MEDICATIONS. SHE SAYS "YOU ARE TRYING TO POISON ME." TELLS ME NOT TO BRING HER MEDICATION UNLESS SHE TELLS ME TO. KEEPS ASKING FOR HER PURSE. SHE HAS NO PERSON BELONGINGS WITH HER.
--- NOTE | 2016-12-01 11:25 | NUR ---
PT LAYING ON HER LEFT SIDE IN BED WITH HER BACK TO THE NURSES STATION. SHE IS CARRYING ON A CONVERSATION WITH HERSELF AT THIS TIME.
--- NOTE | 2016-12-01 12:25 | NUR ---
SON AT BEDSIDE. GOT UPDATED PHONE NUMBER AND ADDRESS FOR HIM. HE SAYS THE PHONE IS PROBABLY TURNED OFF BECAUSE OF BILL PAYMENT AND HE CAN'T FIND IT RIGHT NOW. NO OTHER NUMBER AVAILABLE. HE SAYS PATIENT DOES LIVE WITH HIM AND HAS FOR SOME TIME NOW. HE IS REQUESTING THAT WE GIVE HER HER SNUFF, THAT THAT WOULD MAKE HER FEEL BETTER. PT IS VERY CONFUSED, REFUSING TO EAT OR DRINK FROM LUNCH TRAY. SON IS UPSET THAT SHE IS CONFUSED AND SO TIRED. TOLD HIM THAT SHE DID NOT SLEEP LAST NIGHT AND WAS VERY AGITATED AND COMBATIVE AND HAD TO HAVE MEDICATION FOR THAT. SHE HAS NOT HAD ANY SINCE 0600. HE REQUESTED THAT HER SUGAR BE RECHECKED. SHE WAS RECHECKED AND FOUND TO BE AT 50. 50% DEXTROSE INJECTION GIVEN. PT STILL REFUSING TO EAT OR DRINK FOR ME OR HER SON. SHE JUST SAYS SHE WANTS TO SLEEP. SHE IS PICKING AT HER DRESSINGS TRYING TO REMOVED THEM.
--- NOTE | 2016-12-01 12:44 | NUR ---
reviewed chart with dr. valiente. dr. valiente feels that the pt is not stable enough at this time to come to [facility]. Once pt is more stable, dr. valiente will accept pt on [facility]. updated Tracy TABOR on Dr. Valiente's decision. thank you for the consult.
--- NOTE | 2016-12-01 13:07 | NUR ---
PT SON HAS LEFT, WILL BE BACK FOR 3PM VISITATION. SAYS HE IS GOING TO TRY TO LOCATE HIS PHONE. TOLD HIM THAT WOULD BE A GOOD IDEA SO THAT THERE WOULD BE A WAY TO CONTACT HIM SHOULD SOMETHING CHANGE IN HER STATUS. HE ASKED ME IF SHE CONTINUES TO REFUSE TO EAT IF WE WOULD PUT A TUBE IN HER AND GIVE HERE SOME REFRIED BEANS IN IT. EXPLAINED TO HIM HOW A FEEDING TUBE WORKS AND THAT PATIENTS ARE FED FORMULA IN THE FEEDING TUBE. SAYS THERE ARE NO LEGAL DOCUMENTS STATING WISHES REGARDING CARE OR GIVE AUTHORITY FOR SOMEONE ELSE TO MAKE DECISIONS REGARDING CARE OF PATIENT. PT NOW YELLING OUT THAT SHE WANTS HER MEDICATION AND TO "GET THAT GIRL FROM [employer] THAT TRIED TO GIVE IT TO ME EARLIER". SHE DID NOT WANT THE BLOOD PRESSURE MONITOR ON HER OR TO HAVE HER IV FLUIDS RESTARTED. PT WAS DISTRACTED BY SON AND STUDENT NURSE TO GET IV LINE CONCEALED AND BLOOD PRESSURE CUFF BACK ON. FLUIDS NOW RUNNING ORDERED. PT IS SITTING UP IN HER BED EATING PEANUTBUTTER. REFUSES ANYTHING ELSE.
--- NOTE | 2016-12-01 13:19 | NUR ---
PATIENT'S SON VISITED WHILE I WAS NOT ON THE UNIT. HE LEFT A PHONE [phone]. HE STATES SHE LIVES AT HOME WITH HE AND HIS GIRLFRIEND. HE STATES THEY TAKE CARE OF HER AT HOME. THEY LIVE AT [address] [place] [address] IN [place]. HE LEFT BEFORE I WAS ABLE TO INTERVIEW HIM REGARDING HIS MOTHER. PATIENT IS ACCEPTED ON [facility] WHEN SHE IS MEDICALLY STABLE. CM TO FOLLOW.
--- NOTE | 2016-12-01 15:03 | NUR ---
SON AT BEDSIDE. TRYING TO REORIENT PT. LETTING HER KNOW THAT SHE IS IN HOSPITAL TO TRY TO GET BETTER. SHE KEEPS SAYING SHE WANTS TO GO HOME.
--- NOTE | 2016-12-01 15:14 | NUR ---
CASE MANAGEMENT IN ROOM SPEAKING WITH SON AND PATIENT
--- NOTE | 2016-12-01 15:50 | NUR ---
PT SON WHEN TALKING WITH CASE MANAGEMENT REQUESTED FOR PATIENT TO GO HOME. MRS. MARI WAS INSISTENT ON GOING HOME AND WANTING ABDIEL TO TAKE HER. HE BECAME INSISTENT THAT WE GET A WHEELCHAIR AND LET THEM LEAVE. CASE MANAGEMENT AND I EXPLAINED TO HIM THAT HE WOULD BE LEAVING AGAINST MEDICAL ADVICE AND THE PATIENT WAS AT RISK AND COULD . HE SAID HE WAS AWARE AND THAT HE WANTED TO TAKE HER HOME. DR HILL WAS CALLED TO INFORM HIM OF LEAVING AMA. ADMINISTRATION WAS ALSO NOTIFIED BECAUSE PT HAS BEEN CONFUSED AND NOT CAPABLE OF MAKING AN INFORMED DECISION TO LEAVE.
--- NOTE | 2016-12-01 15:58 | NUR ---
SON ABDIEL CALLED AND ASKED TO BRING PATIENT'S SNUFF FOR HER. HE THANKED ME CALLING HIM AND FOR ADMINISTRATION ALLOWING HER TO HAVE IT.
--- NOTE | 2016-12-01 17:17 | NUR ---
iv ACCESS-#22 CATHETER IN LEFT THUMB FOR IV JAKI TRIANA RN
--- NOTE | 2016-12-01 17:50 | NUR ---
PT SITTING UP IN BED EATING HER DINNER TRAY. HAS EATEN ABOUT 30% AT THIS POINT. WANTS TO HOLD ON TO IT TO CONTINUE EATING ON IT. HAS BEEN GIVEN HER SNUFF REQUESTED.
--- NOTE | 2016-12-01 18:30 | NUR ---
PT HAS PULLED OUT IV FROM LEFT THUMB.
--- NOTE | 2016-12-01 18:35 | NUR ---
BLOOD SUGAR CHECKED. FOUND TO BE 48 EVEN THOUGH SHE HAS CONSUMED AT LEAST 3 CONTAINERS OF PEANUBUTTER IN THE LAST COUPLE OF HOURS AND HAS EATEN 30% OF HER DINNER. 25ML OF D50 GIVEN.
--- NOTE | 2016-12-01 19:15 | NUR ---
RECEIVED PATIENT AWAKE IN BED WATCHING TV, ASSESSMENT COMPLETE PER FLOWSHEET. PATIENT IS DISORIENTED TO TIME/PLACE, STATES UNDERSTANDING OF SITUATION BUT MANNER IS UNCONVINCING. EYES PERRLA @ 3MM WITH BRISK RESPONSE, SCLERA IS WHITE. ORAL/NASAL MUCOSA IS MOIST AND INTACT, SOME TEETH MISSING. S1/S2 NOTED WITH PATIENT NSR ON TELEMETRY, PATIENT HAS PACEMAKER/DEFIBRILLATOR IMPLANTED IN UPPER CHEST. BREATHING IS EVEN AND EFFORTLESS ON RA, OXYGEN SAT 97%. ABDOMEN IS SOFT AND ROUND, NON-TENDER TO PALPATION WITH BOWEL SOUNDS ACTIVE X4. PATIENT VOIDS USING BEDSIDE COMMODE WITH 1 PERSON ASSIST, NO DIFFICULTIES. UPPER PULSES PALPABLE WITH WEAK PULSES LOWER EXTREMITIES, SLIGHT WEAKNESS NOTED ALL EXTREMITIES. IV RESTARTED IN L AC, 20G PATENT AND SALINE LOCKED. ALL VSS AND WILL CONTINUE TO MONITOR.
[2016-12-01 20:01] LABS: CREATININE - URINE 71.6 mg/dL (30-125); PROTEIN - URINE 90.2 mg/dL (0.0-11.9)
[2016-12-01 20:08] LABS: UPE RAND - ALBUMIN 53.4 % (()); UPE RAND - ALPHA 1 GLOBULIN 5.9 % (()); UPE RAND - ALPHA 2 GLOBULIN 14.4 % (()); UPE RAND - GAMMA GLOBULIN 7.3 % (())
[2016-12-01 20:21] LABS: APPEARANCE HAZY (CLEAR); BILIRUBIN NEGATIVE (NEGATIVE); COLOR YELLOW (YELLOW); GLUCOSE NEGATIVE (NEGATIVE); KETONE NEGATIVE (NEGATIVE); LEUKOCYTE ESTERASE 1+ (NEGATIVE); NITRITE NEGATIVE (NEGATIVE); PROTEIN 1+ mg/dL (NEGATIVE); UROBILINOGEN NORMAL (NORMAL)
[2016-12-01 20:22] LABS: BACTERIA MANY /hpf (NONE SEEN); EPITHELIAL CELLS 0-5 /hpf (0-5); RED CELLS - URINE 0-5 /hpf (0-5); WHITE CELLS - URINE 25-50 /hpf (0-5)
--- NOTE | 2016-12-01 21:00 | NUR ---
NO VISITORS AT THIS TIME, PATIENT BS RESULT 84. ENCOURAGED PATIENT TO HAVE SOME JUICE AND EAT, PATIENT ATE A FEW BITES THEN "COULDN'T EAT ANY MORE". PATIENT ALSO KEEPS CALLING FOR SON AFTER REORIENTING, SON STATED HE WILL BE PRESENT FOR VISITATION IN AM. NO FURTHER NEEDS A THIS TIME, ALL VSS AND RECHECK GLUCOSE FOR MONITORING.
--- NOTE | 2016-12-01 23:00 | NUR ---
REASSESSMENT COMPLETE PER FLOWSHEET, PATIENT RESTING IN BED WITH EYES CLOSED. OCCAISIONALLY WAKES UP AND ASKS FOR HER SON, PATIENT REORIENTED AND ENCOURAGED TO REST. PATIENT DISORIENTED TO TIME/PLACE BUT COMPLIES WITH INSTRUCTIONS WHEN ASKED. PATIENT IS NSR WITH PERIODS OF SINUS BRADYCARDIA ON TELEMETRY, PATIENT B/P STABLE WITH CAP REFILL <3SEC. ALL VSS AND WILL CONTINUE TO MONITOR.
[2016-12-02] VITALS (25 sets, daily range): BP systolic 100–140; BP diastolic 36–79
--- NOTE | 2016-12-02 00:05 | NUR ---
BLOOD SUGAR CHECKED, RESULT 30MG/DL. 25ML DEXTROSE GIVEN, WILL RECHECK IN 30 MINS.
--- NOTE | 2016-12-02 01:10 | NUR ---
PATIENT BS RECHECKED RESULT OF 74MG/DL. ALL VSS AND WILL CONTINUE TO MONITOR.
--- NOTE | 2016-12-02 03:00 | NUR ---
REASSESSMENT COMPLETE PER FLOWSHEET, PATIENT RESTING IN BED WITH EYES OPEN WATCHING TV. PATIENT IS CALM AND RELAXED, STATES PAIN 3/10 BUT "DOESN'T NEED ANYTHING" FOR IT. AMBULATED TO BEDSIDE COMMODE WITH 1 PERSON ASSIST, VOIDED 40ML YELLOW URINE WITHOUT DIFFICULTY. PATIENT MUST BE REORIENTED TO TIME/SITUATION REPEATEDLY, REMAINS IN GOOD MOOD. ALL VSS AND NO FURTHER NEEDS AT THIS TIME, WILL CONTINUE TO MONITOR.
--- NOTE | 2016-12-02 03:05 | NUR ---
PATIENT BS RESULT 36, HYPOGLYCEMIC PROTOCOL FOLLOWED. PATIENT GIVEN 25ML DEXTROSE, WILL RECHECK IN 15 MINS.
--- NOTE | 2016-12-02 03:25 | NUR ---
PATIENT BS 83, NO FURTHER ACTION TAKEN. ALL VSS AND WILL CONTINUE TO MONITOR.
[2016-12-02 04:58] LABS: BASOPHILS 0.3 % (0.0-2.0); EOSINOPHILS 2.7 % (0-7); HEMATOCRIT 29.8 % (36.0-48.0); HEMOGLOBIN 9.5 g/dL (12-16); IMMATURE GRANULOCYTES 0.3 % (0-5); LYMPHOCYTES 8.5 % (15-50); MCH 30.2 pg (26.0-34.0); MCHC 31.9 g/dL (31.0-37.0); MCV 94.6 fL (80.0-100.0); MEAN PLATELET VOLUME 10.5 fL (7.4-10.4); MONOCYTES 6.6 % (2-11); NEUTROPHILS 81.6 % (40-80); PLATELET COUNT 90 10x3/uL (130-400); RBC 3.15 10x6/uL (4.00-5.40); RDW 18.8 % (11.5-14.5); WBC 3.7 10x3/uL (4.8-10.8)
[2016-12-02 05:10] LABS: CALCIUM 7.4 mg/dL (8.5-10.1); CARBON DIOXIDE 30.4 mmol/L (21.0-32.0); CREATININE - SERUM 4.4 mg/dL (0.6-1.3); MAGNESIUM - SERUM 1.8 mg/dL (1.8-2.4); PHOSPHOROUS 3.5 mg/dL (2.5-4.9); POTASSIUM - SERUM 4.4 mmol/L (3.5-5.1)
--- NOTE | 2016-12-02 05:45 | NUR ---
PATIENT BS CHECKED, RESULT 42. HYPOGLYCEMIA PROTOCOL STARTED, 25ML DEXTROSE GIVEN AND WILL RECHECK IN 15 MINS.
--- NOTE | 2016-12-02 06:22 | NUR ---
PATIENT BS RECHECKED, RESULT IS 171. PATIENT HAD 25ML DESTROSE AND DRANK 480ML OF APPLE JUICE BETWEEN. NO ACTION TAKEN AT THIS TIME, WILL CONTINUE TO MONITOR.
--- NOTE | 2016-12-02 07:00 | NUR ---
REPORT RECEIVED. ASSESSMENT COMPLETED AT THIS TIME. PATIENT IS VERY CONFUSED.
--- NOTE | 2016-12-02 08:10 | NUR ---
PATIENT VERY CONFUSED. UNABLE TO REORIENTATE. SHE IS ARGUMENTATIVE AND UNCOOPERATIVE. HAS SET OFF HER BED ALARM 2 TIMES THIS AM ALREADY. SHE STARTED TO TAKE HER MEDICATIONS AND THEN AFTER SWALLOWING A FEW, PUT THE REST IN HER MOUTH, DRANK SOME GRAPE JUICE AND THEN SPIT ALL OF THEM AND HER GRAPE JUICE OUT IN THE MEDICINE CUP. WILL REPOSITION IN BED AND THEN FLUSH THE MEDS FROM HER MEDICINE CUP, AND CAESAR REFUSED.
--- NOTE | 2016-12-02 08:49 | NUR ---
PATIENT TOOK HER MEDICATIONS WITH SOME COAXING.
--- NOTE | 2016-12-02 09:17 | NUR ---
SON HERE VISITING WITH PATIENT. HE HAS QUESTIONED THIS NURSE ABOUT THE PATIENTS CONFUSION. QUESTIONS ANSWERED. ONESIMO SON DOESN'T THINK THAT THEY WANT TO GO THE HOSPICE ROUTE. WE DISCUSSED CARE HOME, AND THE SON THINKS THAT THAT IS THE BEST CHOICE. WE TALKED IN DEPTH ABOUT HER CONFUSION. HE ASKED QUESTIONS ABOUT HER WHEN SHE GOES HOME. EXPLAINED THAT IF SHE CONTINUES WITH CONFUSION, SHE WILL DEFINATELY HAVE TO HAVE SOMEONE AT HOME WITH HER 23/05. HE STATED THAT HE WOULD DO HIS PART.
--- NOTE | 2016-12-02 11:55 | NUR ---
PATIENT RESTING QUEITLY IN SEMIFOWLERS POSITION WITH EYES CLOSED. WILL HOLD OFF ON MEDICATIONS UNTIL SHE WAKES UP.
--- NOTE | 2016-12-02 12:56 | NUR ---
@1203 GLUCAGON SQ GIVEN SECONDARY TO FSBS 25. PTS IV OUT. AT 1232 IV WAS PLACED BY JAKI VASCULAR ACCESS NURSE. 1/2 AMP D50 GIVEN PER ORDERS. FSBS 56 AT 1251 FSBS 77. PATIENTS SATS 93% AND SHE IS STILL NOT WAKING UP WELL. OXYGEN APPLIED AT 2L N/C, SATS UP TO 99%. @1258, PATIENT IS MAKING AN ATTEMPT AT VOCALIZING.
--- NOTE | 2016-12-02 13:45 | NUR ---
CALL PLACED TO DR WHITFIELD'S OFFICE. SPOKE WITH DR WHITFIELD. DISCUSSED IV ACCESS AND WHAT TO DO IF THIS ACCESS COMES OUT. ALSO EXPLAINED THAT HER FSBS WENT DOWN TO 22 AND WAS ONLY UP TO 78. ASKED IF WE COULD CHANGE HER FLUIDS TO SOMETHING WITH DEXTROSE IN IT. NEW ORDERS RECEIVED.
--- NOTE | 2016-12-02 15:01 | NUR ---
AT 1444 FSBS 55, WENT TO GIVE MORE D50 PER ORDERS AND PATIENTS IV WAS LEAKING ON THE BED. IV DC'D SECONDARY TO NOT WORKING. PAGE PLACED TO DR ROSARIO TO GET THE CENTRAL LINE INITIATED. RECHECK OF FSBS AT 1501 WAS 51. ORAL GLUCAGON WAS GIVEN BY SHARONA HER , BUT PATIENT THREW IT BACK UP. WILL WAIT FOR CENTRAL LINE PLACEMENT AND GIVE THE D50.
--- NOTE | 2016-12-02 15:05 | NUR ---
PTS IV OUT. PER PREVIOUS ORDERS, DR WHITFIELD, ORDER PUT IN FOR CENTRAL LINE. SPOKE WITH PATIENTS SON ON THE PHONE FOR CONSENT WITH SHARONA EPPERSON CONFIRMING. SPOKE WITH DR ROSARIO. HE WILL BE HERE TO PUT IT IN. PATIENT DRANK SOME ORANGE JUICE AND THREW IT UP. CURRENTLY EATING PEANUT BUTTER FROM A SPOON AND HOLDING IT DOWN. WILL GIVE HER THE D50 STILL AFTER CENTRAL LINE IS PLACED.
[2016-12-02 15:23] LABS: SPE - ALBUMIN 2.2 g/dL (2.9-4.4); SPE - ALPHA-1 GLOBULIN 0.3 g/dL (0.0-0.4); SPE - ALPHA-2 GLOBULIN 0.4 g/dL (0.4-1.0); SPE - BETA GLOBULIN 0.6 g/dL (0.7-1.3); SPE - M-SPIKE Not Observed g/dL (Not Observed); SPE - TOTAL PROTEIN 4.4 g/dL (6.0-8.5)
--- NOTE | 2016-12-02 15:45 | NUR ---
DR ROSARIO ASSISTED WITH BEDSIDE CENTRAL LINE PLACEMENT. LINE WAS PLACED TO RIGHT JUGULAR WITHOUT DIFFICULTY. PATIENT TOLERATED WELL. WILL WAIT FOR CONFORMATION AFTER STAT CXR BEFORE USING. FSBS 229. AT THIS TIME WILL LET IT BE HIGH.
--- NOTE | 2016-12-02 19:00 | NUR ---
1900: Pt resting with eyes closed at this time. Open to verbal and answers questions. Oriented to person, place, and time. Pt denies pain and states that her pain is better. (Previous RX noted) Pt c/o occasional nausea espcially with head down. Pt positioned HOB 30 degrees at this time. Pt Paced on CM 60 bpm with SBP 110's. Pt has bilateral dressings/wraps on arms. Scabs and varying degrees of bruising seen on bilateral arms and legs. Pt's chest is "purple" dark discolored entirety of chest. Pt legs also in similar state with with multiple areas of scabs and bruises seen. Pt states she doesn't know how she got all the bruises or scabs. Pt breathing 022LNC with [id number] with SPO2 97%. ABD soft NT BS active. SR up x2, call light in reach and patient able to demonstrate use, Water provided, and bedside table in reach. Fall alarm on and audible. Bed also placed at lowest position possible.
--- NOTE | 2016-12-02 21:00 | NUR ---
2100: Pt PO RX admin as per orders except IMDUR. Pt HR 60 and SBP 110. Pt's syncope also noted. Pt able to swallow without difficulty. Pt repositioned x2 RNs and pink pad replaced at this time. Assisted pt for comfort and pt returns to resting with eyes closed at this time.
--- NOTE | 2016-12-02 23:15 | NUR ---
2315: Pt FSBS 42 at this time. D50W 1/2 amp admin STAT to CVL and flushed with NS. Glucagen admin to right buttocks IM. (Glucagen vial for IM or IV only) Pt opens eyes briefly, but does not answer questions and returns to resting with eyes closed quickly. Pt remains Paced 60 and 022LNC.
[2016-12-03] VITALS (18 sets, daily range): BP systolic 97–155; BP diastolic 26–69
--- NOTE | 2016-12-03 00:01 | NUR ---
0000: Pt answers yes and no to some questions at this time. Pt FSBS 121. No change in RESP/CV/NV status. No change in IVF/UOP.
--- NOTE | 2016-12-03 01:30 | NUR ---
0130: Pt awake and oriented at this time. Pt has multiple requests. Pt bath and linen change done at this time and pt repositioned for comfort. Right IJTL dressing loose. Dressing changed with sterile technique at this time as well with Biopatch applied. FSBS 117.
--- NOTE | 2016-12-03 03:30 | NUR ---
0330: Pt sitting up in bed easily arousable to verbal. Pt returns to resting with eyes closed. Pt remains Paced on CM 60 bpm with SBP 110-120. No change in IVF/UOP.
--- NOTE | 2016-12-03 04:15 | NUR ---
0415: Assisted pt with bedpan. Pt unable to void at this time. Pt repositioned for comfort. Pt without c/o at this time. Pt remains LOCx3.
[2016-12-03 04:23] LABS: BASOPHILS 0.3 % (0.0-2.0); EOSINOPHILS 1.9 % (0-7); HEMATOCRIT 26.4 % (36.0-48.0); HEMOGLOBIN 8.6 g/dL (12-16); LYMPHOCYTES 5.6 % (15-50); MCH 30.4 pg (26.0-34.0); MCHC 32.6 g/dL (31.0-37.0); MCV 93.3 fL (80.0-100.0); MEAN PLATELET VOLUME 10.4 fL (7.4-10.4); MONOCYTES 7.3 % (2-11); NEUTROPHILS 84.9 % (40-80); PLATELET COUNT 69 10x3/uL (130-400); RBC 2.83 10x6/uL (4.00-5.40); RDW 18.1 % (11.5-14.5); WBC 3.7 10x3/uL (4.8-10.8)
[2016-12-03 04:35] LABS: ANION GAP 12.4 mmol/L (8-16); CARBON DIOXIDE 26.5 mmol/L (21.0-32.0); POTASSIUM - SERUM 3.9 mmol/L (3.5-5.1)
[2016-12-03 04:42] LABS: PLATELET ESTIMATE DECREASED
--- NOTE | 2016-12-03 04:45 | NUR ---
0445: Pt urinated on pink pad. Pad changed and pt repositioned for comfort. Pt remains awake and alert at this time.
[2016-12-03 04:48] LABS: ALBUMIN 1.6 g/dL (3.4-5.0); CALCIUM 6.9 mg/dL (8.5-10.1)
--- NOTE | 2016-12-03 05:03 | NUR ---
0500: PT BS 68. Glucagen admin 1 mg IM and 1/2 amp D50W IVP via CVL. Pt continues LOCx3 at this time.
--- NOTE | 2016-12-03 06:07 | NUR ---
0600: Assited pt with reposition multiple times. Pt placed on right side with pillow supports. Pt remains Paced 60 bpm with SBP 120's.
--- NOTE | 2016-12-03 06:35 | NUR ---
0635: Pt c/o seeing someone in her room and wants to know where they live. Pt not oriented to time and is easily reoriented via verbal.
--- NOTE | 2016-12-03 09:21 | NUR ---
NUTRITION MONITORING & EVAL CHART REVIEWED. PT SLEEPING. NURSING REPORTS PT NOT WANTING TO WAKE UP FOR BREAKFAST. WILL CONTINUE TO PROVIDE DIET, MONITOR PT PROGRESS. RD FOLLOWING
--- NOTE | 2016-12-03 14:32 | NUR ---
0730-RECIEVED PER FLOW SHEET-CALLING OUT ASSISTED TO BEDPAN-NOTED L ARM DRESSIGN OFF AND PT SCRATCHING AT THIS TIME-NOTED SANGUOUS DRAINAGE FROM SITES 0800-DR WHITFIELD AT BEDSIDE-PT ABLE TO ANSWER QUESTIONS CORRECTLY-PACED 100% 0930-SON AT [facility]-PT STATED SHE IS SIGNING FINANCIAL PAPERS ONLY FOR SON-NOT SIGNING MEDICAL POA-PT ABLE TO STATE PAST PRESIDENT-CURRENT PRESIDENT-YEAR OF -ALL SIBLINGS CURRENTLY ALIVE AND WHICH ONES -REFERED TO LOCATION A REHAB FACILITY-NOTARY AT BEDSIDE AND PT SIGNED WITH SON-PT REMAINS AGREEABLE TO SIIGN AND ABLE TO STATE IN HOSPITAL 1230-PHYSICAL THERAPY AT BEDSIDE AND AMBULATED PT AND PLACED IN CHAIR WITHOUT DIFFICULTY 1400-ASSISTED TO BEDSIDE COMMODE WITH STRONG ASSIST-PT STATED SHOULD LIFT HER-INFORMED PT IF NOT ABLE TO BEAR WEIGHT TO TOILET-WILL NOT BE ABLE TO DISCHARGE HOME-PT BEARED WEIGHT WITHOUT DIFFICULTY-KBRN
--- NOTE | 2016-12-03 16:07 | NUR ---
DR ROSARIO AT BEDSIDE-SHOWN- R RADIAL SITE-ORDER RECIEVD AND NOTED-SALINE WET TO DRY DONE
--- NOTE | 2016-12-03 16:25 | OP ---
PATIENT NAME: SAMANTA MARI MEDICAL RECORD: [id number] :42 LOCATION:[facility] [id number] ADMISSION DATE:11/28/16 SURGEON: FEDERICO ROSARIO MD DATE OF OPERATION: 12/02/2016 PREOPERATIVE DIAGNOSES: 1. Need for IV access. 2. Hypoglycemia. 3. End-stage renal disease. 4. Organic heart disease. 5. Cellulitis of the upper extremity. 6. Anemia. POSTOPERATIVE DIAGNOSES: 1. Need for IV access. 2. Hypoglycemia. 3. End-stage renal disease. 4. Organic heart disease. 5. Cellulitis of the upper extremity. 6. Anemia. PROCEDURE: Right IJ triple-lumen central venous line placement. SURGEON: Federico Rosario MD REPORT OF PROCEDURE: The patient's right neck was prepped and draped in sterile fashion, 3 cc of 1% lidocaine was infused into the subcutaneous tissues. Using ultrasound guidance, a needle was used to cannulate the right internal jugular vein. The guidewire was advanced with ease. Over this wire, a dilator was placed followed by the triple lumen catheter. The catheter aspirated nonpulsatile dark blood and flushed easily in all 3 ports with normal saline. This was sutured into place with 3-0 silk ties and dressed appropriately. COMPLICATIONS: None. CONDITION: Stable. ANESTHESIA: Local. BLOOD LOSS: Minimal. Procedure done at the bedside. TRANSINT:[id number] Voice Confirmation ID: [id number] DOCUMENT ID: [id number] FEDERICO ROSARIO MD at 1625 CC: [id number] DICTATION DATE: 12/02/16 1532 MILLER KILN DRIED SALT: 12/02/16 1929 ADM IN [facility] [address] [place] [address]
--- NOTE | 2016-12-03 19:00 | NUR ---
1900: Pt bed saturated. Complete linen change done. Pt repositioned for comfort on left side as per request with pillow supports. Pt does not remember RN, but is oriented to person, place, and time. Pt remains Paced 60 bpm on CM and SBP 120's. BP cuff remains on leg as per pt request. Pt refuses to wear 02 or BP cuff on arm.
--- NOTE | 2016-12-03 20:00 | NUR ---
2000: Pt yelling out for staff repeatedly. Pt attempting to get OOB. Pt is oriented to person, place, and time. Pt asking for "Can." Pt states she brought a can from her house and it was on her bed. Pt also states that there were children in her room. Attempted to assess "can." Unable to find. Pt's snuff can placed at bedside as per orders.
--- NOTE | 2016-12-03 21:00 | NUR ---
2100: Pt aggitated and attempting to call police. Pt states; "what is your name?" "I'm gonna have to call the law and file a police report." All attempts to distract pt unsuccessfull at this time. Pt remains oriented to person and place, but not time. Pt states; "I will be calling the nurses association to report you because you will not help me call the police." Continued to look for pt's "can." Unable to locate. Pt not talking about "Snuff can." Explained that I understand pt believes the can was here, but have not seen the can and did not see it last night. Pt states; "How long have I been here?" Pt does not recall coming to hospital or current visit. Pt states she does not remember RN either. FSBS checked 74 at this time. Glucagon admin as per orders. Pt looking at PO medications (Nifrex) states; "this has been opened before" , while holding the capsule. Pt did take rest of provided PO medications with no difficulty with swallow.
--- NOTE | 2016-12-03 22:00 | NUR ---
2200: Pt resting with eyes closed at this time.
--- NOTE | 2016-12-03 23:45 | NUR ---
2345: Pt resting with eyes closed at this time. Pt remains Paced on CM 60 bpm. No change in RESP/CV/NV status.
[2016-12-04] VITALS (20 sets, daily range): BP systolic 81–158; BP diastolic 44–135
--- NOTE | 2016-12-04 03:00 | NUR ---
0300: Pt awake at this time yelling for help. Pt oriented to person, place, and time. Pt states; "I want someone to sit in here with me." Pt remains Paced on CM 60 bpm and SBP 140-150. Pt requested water and OJ. Provided both. Pt repositioned for comfort. Changed [place] pad, sheets, blankets at this time.
--- NOTE | 2016-12-04 04:00 | NUR ---
0400: Pt bed covered in brown powder (Snuff) and saturated with water. Linen & gown changed at this time. Left Arm dressing changed. Pt repositioned as requested multiple times. Pt oriented to person, place, and time.
--- NOTE | 2016-12-04 04:17 | NUR ---
0417: FSBS 53. 1/2 AMP D50W IVP X1, AND GLUCAGEN 1MG IM X1 AT THIS TIME. PT IS AWAKE AND CONVERSIVE AT THIS TIME.
--- NOTE | 2016-12-04 05:20 | NUR ---
0520: FSBS 113. Pt awake, alert, and oriented at this time. Pt remains Paced 60 bpm.
[2016-12-04 05:26] LABS: BASOPHILS 0.3 % (0.0-2.0); EOSINOPHILS 2.6 % (0-7); HEMATOCRIT 27.3 % (36.0-48.0); HEMOGLOBIN 8.9 g/dL (12-16); IMMATURE GRANULOCYTES 0.3 % (0-5); LYMPHOCYTES 9.7 % (15-50); MCH 30.3 pg (26.0-34.0); MCHC 32.6 g/dL (31.0-37.0); MCV 92.9 fL (80.0-100.0); MEAN PLATELET VOLUME 10.8 fL (7.4-10.4); MONOCYTES 8.4 % (2-11); NEUTROPHILS 78.7 % (40-80); PLATELET COUNT 84 10x3/uL (130-400); RBC 2.94 10x6/uL (4.00-5.40); RDW 18.6 % (11.5-14.5); WBC 3.1 10x3/uL (4.8-10.8)
[2016-12-04 05:35] LABS: ALBUMIN 1.8 g/dL (3.4-5.0); ANION GAP 10.2 mmol/L (8-16); BILIRUBIN - TOTAL 0.46 mg/dL (0.2-1.3); CALCIUM 7.9 mg/dL (8.5-10.1); CREATININE - SERUM 4.4 mg/dL (0.6-1.3); MAGNESIUM - SERUM 2.1 mg/dL (1.8-2.4); PHOSPHOROUS 3.7 mg/dL (2.5-4.9); POTASSIUM - SERUM 4.2 mmol/L (3.5-5.1); PROTEIN - SERUM 5.1 g/dL (6.4-8.2)
--- NOTE | 2016-12-04 14:38 | NUR ---
0830-RECIEVED PER FLOW SHEET PHYSICAL THERAPY AT [facility]-ASSISTED PT WITH AMBULATION WITH WALKER--NOTED OBJECTS ON PT R SIDE-NOT ABLE TO AVOID-PT STRONGLY DENIED ANY VISION LOSS-STATED GLASSES FOR READING ONLY-WAVED HAND ON R LATERAL SIDE, PT NOT AWARE-ASSISTED TO BEDSIDE CHAIR-PT REMOVING R WRIST DRG-REPLACED 09-SON AT BEDSIDE -WANTING TO KNOW IF THE R WRIST DIALYSIS PLACEMENT WAS DONE WRONG-INFORMED SAME AND SHOWN SITE-THIS WAS SCRATCHED OUT BY PT PRIOR TO HOSPITAL ADMIT-PLAN TO CLEAN WET TO DRY SALINE AND RE-EVALUATE TUESDAY FOR FURTHER REPAIR IF NEEDED--PT VOCALIZED DOES ITCH-NO ADMIT TO SCRATCHING INCISION 1030-REMAINS SITTING UP IN CHAIR 1215-SON AT BEDSIDE-CLIPPED HIS MOTHERS FINGERNAILS-STATED TO PREVENT FURTHER SCRATCHING AND PLACED SOFT WINTER MITTENS ON HANDS TO ATTEMPT TO PREVENT FURTHER SCRATCHING
--- NOTE | 2016-12-04 18:32 | NUR ---
5465-[id number]-BYWTQ/TOBACCO POWDER OVER SELF -COPIOUS AMOUNT-COMPLETE LINEN AND BEDBATH DONE-ASSISTED TO CHAIR 1700-REFUSING DINNER TRAY-RETURNED TO BED-REQUESTING TO BE LIFTED TO BED-PT WEIGHT BEARED WITH EASY TRANSFER 1800-APPEARS ASLEEP
--- NOTE | 2016-12-04 20:00 | NUR ---
2000: Pt right jugular CVL dressing loose. Dressing changed with sterile technique. CVL remains saline locked and swab caps intact.
[2016-12-05] VITALS (23 sets, daily range): BP systolic 73–150; BP diastolic 41–76
--- NOTE | 2016-12-05 | NUR ---
0000: Pt resting with eyes closed at this time. Pt remains Paced 60 bpm. Pt remains room air with RR10x with SPo2 98%. Pt with occasional scratching and pulling at dressings while asleep.
--- NOTE | 2016-12-05 04:30 | NUR ---
0430: Pt resting in bed with eyes closed. Opens to verbal and answers questions approp. Pt paced 59bpm. FSBS 70's.
[2016-12-05 04:49] LABS: BASOPHILS 0.5 % (0.0-2.0); EOSINOPHILS 3.2 % (0-7); HEMATOCRIT 25.7 % (36.0-48.0); HEMOGLOBIN 8.4 g/dL (12-16); IMMATURE GRANULOCYTES 0.5 % (0-5); LYMPHOCYTES 12.5 % (15-50); MCH 30.2 pg (26.0-34.0); MCHC 32.7 g/dL (31.0-37.0); MCV 92.4 fL (80.0-100.0); MEAN PLATELET VOLUME 11.9 fL (7.4-10.4); MONOCYTES 10.6 % (2-11); NEUTROPHILS 72.7 % (40-80); PLATELET COUNT 78 10x3/uL (130-400); RBC 2.78 10x6/uL (4.00-5.40); RDW 18.4 % (11.5-14.5); WBC 2.2 10x3/uL (4.8-10.8)
[2016-12-05 05:06] LABS: ANION GAP 13.6 mmol/L (8-16); CALCIUM 7.9 mg/dL (8.5-10.1); CARBON DIOXIDE 24.6 mmol/L (21.0-32.0); CREATININE - SERUM 4.6 mg/dL (0.6-1.3); POTASSIUM - SERUM 4.2 mmol/L (3.5-5.1)
--- NOTE | 2016-12-05 16:25 | NUR ---
Patient remains in ICU secondary to Nursing Administration decision. She reportedly had "picked the fistula site on the right wrist to depth internal sutures. Reportedly plan to relook at the site by surgery on Tuesday. Has psych evaluation pending. Will need to advise psychiatrist that patient is medically more stable. Reference 12/02/16 note. Physical therapy states "patient more tired today. Is again going to the right and running into things if you don't change her direction". Patient and son are adamant that the discharge plan is for home per the primary nurse. CM did not get to speak directly to the son during his visit this pm.
--- NOTE | 2016-12-05 17:55 | NUR ---
0800-PT AWAKE AND ALERT-AMBULATED WITH PHYSICAL THERAPY-FOLLOWING ALL DIRECTION AND WALKED THE COMPLETE UNIT WITH WALKER AND PHYSICAL THERAPY ASSIST-NOTED ABLE TO MAINTAIN STRAIGHT LINE-NO DRIFT TO R SIDE 0830-SITTING UP IN CHAIR-BREAKFEST TRAY-ONLY OATMEAL TAKEN-REFUSED REMAINDER OF TRAY-REQUESTING SNUFF-SAME EASILY AVAILABLE FOR PT-AT [facility]
--- NOTE | 2016-12-05 17:59 | NUR ---
1230-AMBULATED WITH PHYSICAL THERAPY-HALF DISTANCE-POOR EFFORT-DRIFT TO R SIDE-PREVENTED FROM BUMPING INTO DOOR WAY-DOES APPEAR TO VISUAL R SIDE OBSTRUCTION IN PATH-FOLLOWS DIRECTION POORLY-ASSISTED BACK TO BED- 1400-NOTED PT USING CELL PHONE 1500-SON AT BEDSIDE- 1630-R WRIST DRG CHANGED-NOTED SMALL AMOUNT OF SANG DRAINAGE -SALINE WET TO DRY-PT COMPLIANT WITH LEAVING DRG IN PLACE 1730-RECIEVED CALL FROM [employer]-PT MAKING MULTIPLE CALLS TO 911 WITH REQUEST TO BE RESECUED-AND TO PICK HER UP TO RETURN HER TO HER SON-REQUESTED TO REMOVE HER PHONE -CELL PHONE REMOVED-CALLED NUMBER PROVIDED BY SON HIS NUMBER TO UP DATE ON STATUS-THE NUMBER WAS THE CELL PHONE PATIENT WAS IN POCESSION OF-FSBS 232-DINNER TRAY SET UP DONE-AND RE-EXPLAINED TO PT -POLICE DEPARTMENT REQUESTED REMOVAL OF PHONE DUE TO FREQUENT 911 CALLS
--- NOTE | 2016-12-05 19:00 | NUR ---
REPORT RECIEVED, INITIAL ASSESSMENT COMPLETE, PLEASE SEE FLOW SHEETS FOR DETAILS. PT AWAKE AND ALERT, ORIENTED X4. STATES PAIN 10/10 IN LEGS AND SHOULDERS AND NECK BUT ALSO STATED SHE JUST RECIEVED A HYDROCODONE FROM PREVIOUS NURSE. HAS MULTIPLE SCABS AND SORES ALL OVER BODY. BRUISES ALL OVER BODY. OPEN SCAB ON LEFT KNEE AND LEFT HAND. DRESSING ON RIGHT AND LEFT WRISTS. REDNESS ON BILATERAL LOWER EXTREMITIES. LUNG SOUNDS WITH EXPIRATORY WHEEZES BILATERALLY. VSS AT THIS TIME, WILL CONTINUE TO MONITOR.
--- NOTE | 2016-12-05 20:59 | NUR ---
PT RESTING IN BED, CALM AND ANSWERS APPROPRIATELY. DENIES ANY PAIN/NEEDS AT THIS TIME, VSS, WILL CONTINUE TO MONITOR.
--- NOTE | 2016-12-05 23:08 | NUR ---
REASSESSMENT COMPLETE, PLEASE SEE FLOW SHEETS FOR DETAILS. PT MOVED UP IN BED, REPOSITIONED, SEVERAL TIMES. PT TRYING TO GET OOB. BED ALERM ON AND SIDE RAILS UP X3. VERBALLY INFORM HER THAT IT IS TIME FOR BED AND SHE NEEDS TO GET SOME REST, SHE STATED SHE NEEDED TO GO HOME AND SHE WOULD BE OKAY. INFORMED HER SHE COULD NOT GO HOME UNTIL SHE WAS BETTER. BED LOW AND LOCKED, CALL LIGHT IN REACH. VSS AT THIS TIME, WILL CONTINUE TO MONITOR.
[2016-12-06] VITALS (14 sets, daily range): BP systolic 80–151; BP diastolic 50–88
--- NOTE | 2016-12-06 01:00 | NUR ---
PT IN BED, QUIET, WATCHING TELEVISION. NO COMPLAINTS AT THIS TIME. BED LOW AND LOCKED, CALL LIGHT IN REACH, BED ALARM ON. VSS AT THIS TIME, WILL CONTINUE TO MONITOR.
--- NOTE | 2016-12-06 03:48 | NUR ---
REASSESSMENT COMPLETE, PLEASE SEE FLOW SHEETS FOR DETAILS. PT CALM AND LAYING IN BED. TV OFF AT THIS TIME. DENIES PAIN/NEEDS AT THIS TIME. TEMP 96.5 OFFERED WARM BLANKET AND THIS WAS ACCEPTED. COVERED WARM BLANKET WITH REGULAR BLANKET. MOVED UP IN BED AND ASSISTED WITH REPOSITIONING. VSS AT THIS TIME, WILL CONTINUE TO MONITOR.
--- NOTE | 2016-12-06 04:21 | NUR ---
DRESSING CHANGED PROVIDED FOR RIGHT RADIAL INCISION, WET TO DRY DRESSING APPLIED AND DATED AND TIMED.
--- NOTE | 2016-12-06 04:22 | NUR ---
FSBS 62, GAVE CUP OF ORANGE JUICE, WILL RECHECK.
--- NOTE | 2016-12-06 05:00 | NUR ---
PT RESTING, DENIES PAIN/NEEDS AT THIS TIME, VSS, WILL CONTINUE TO MONITOR.
--- NOTE | 2016-12-06 05:50 | NUR ---
FULL BED BATH AND LINEN CHANGE PROVIDED.
[2016-12-06 06:33] LABS: BASOPHILS 0.4 % (0.0-2.0); EOSINOPHILS 3.8 % (0-7); HEMATOCRIT 27.4 % (36.0-48.0); HEMOGLOBIN 8.9 g/dL (12-16); LYMPHOCYTES 14.2 % (15-50); MCH 29.8 pg (26.0-34.0); MCHC 32.5 g/dL (31.0-37.0); MCV 91.6 fL (80.0-100.0); MEAN PLATELET VOLUME 11.2 fL (7.4-10.4); MONOCYTES 8.8 % (2-11); NEUTROPHILS 72.8 % (40-80); PLATELET COUNT 78 10x3/uL (130-400); RBC 2.99 10x6/uL (4.00-5.40); WBC 2.4 10x3/uL (4.8-10.8)
[2016-12-06 06:53] LABS: ALBUMIN 1.8 g/dL (3.4-5.0); ANION GAP 14.6 mmol/L (8-16); BILIRUBIN - TOTAL 0.5 mg/dL (0.2-1.3); CARBON DIOXIDE 24.9 mmol/L (21.0-32.0); CREATININE - SERUM 4.8 mg/dL (0.6-1.3); POTASSIUM - SERUM 4.5 mmol/L (3.5-5.1); PROTEIN - SERUM 5.3 g/dL (6.4-8.2)
--- NOTE | 2016-12-06 07:03 | NUR ---
REPORT RECEIVED. PATINET TRYING TO GET OUT OF BED. VERY CONFUSED. THINKS SHE IS AT HER HOUSE. UNABLE TO REORIENTATE. ASSESSMENT COMPLETED.
--- NOTE | 2016-12-06 08:03 | NUR ---
HAVE BEEN IN PATIENTS ROOM SINCE REPORT RECEIVED. HAD TO SIT WITH HER SHE ATE SECONDARY TO HER TRYING TO GET OUT OF BED. LEFT THE ROOM TWICE. FIRST TIME SHE ENDED UP KNOCKING HER LEG AND CAUSING A NEW SPOT TO BLEED. SECOND TIME SHE TOSSED HER CUP OF COFFEE ACROSS THE ROOM. WAITED WITH HER UNTIL SHE WAS DONE WITH BREAKFAST. ALL BLEEDING AREAS OF SKIN COVERED. PATIENT IN HIGHFOWLERS POSITION ENJOYING HER SNUFF.
--- NOTE | 2016-12-06 08:43 | NUR ---
PATIENT UP TO THE BEDSIDE COMMODE, COLLECTED SPECIMINE FOR UA AND CULTURE ORDERED. SPECEMINE COLLECTED VIA CLEAN CATCH.
--- NOTE | 2016-12-06 09:06 | NUR ---
PATIENT UP AMBULATING WITH PHYSICAL THERAPY. WILL MONITOR.
--- NOTE | 2016-12-06 09:08 | NUR ---
PATIENT HAS TO BE REMINDED FREQUENTLY TO OPEN EYES AMBULATING. CEE WITH PHYSICAL THEREAPY WILL KEEP REMINDING HER SHE WALKS.
--- NOTE | 2016-12-06 09:10 | NUR ---
NUTRITION MONITORING & EVAL CHART REVIEWED, PT UP WALKING WITH PT. NURSING REPORTS PT CONTINUES TO HAVE POOR PO INTAKE DESPITE ADDITION OF MEGACE. WILL CONTINUE TO MONITOR PO INTAKE, PT PROGRESS. RD FOLLOWING
--- NOTE | 2016-12-06 09:37 | NUR ---
SPOKE WITH CASE MANAGEMENT ABOUT PATIENTS STATUS, SPOKE WITH LONG-TERM ABOUT REEVALUATING THE PATIENT. THEY STATED THEY WOULD JUST NEED THE CONSULT RESUBMITTED. HAVE SPOKE WITH JOHN IN LONG-TERM AND LET SHARONA SCHOFIELD CASE KNOW WHAT ALL WAS SAID.
--- NOTE | 2016-12-06 09:57 | NUR ---
SPOKE WITH DR ROSARIO. WAS NOT TOLD IN REPORT THAT PATIENT WAS FOR SURE GOING TO SURGERY TODAY. PER FABIANA SHE IS SCHEDULED FOR 1200. PATIENT HAS NOT BEEN NPO. DR ROSARIO SAID THAT SHE WILL NOT BE GOING TO SURGERY. SAID THAT DR JOEL ALREADY HAD A PLAN IN PLACE. SO NO SURGERY TODAY.
[2016-12-06 10:11] LABS: UPE RAND - ALBUMIN 51.3 % (()); UPE RAND - ALPHA 1 GLOBULIN 3.2 % (()); UPE RAND - ALPHA 2 GLOBULIN 9.5 % (()); UPE RAND - BETA GLOBULIN 14.9 % (()); UPE RAND - GAMMA GLOBULIN 21.1 % (())
[2016-12-06 10:11] LABS: APPEARANCE HAZY (CLEAR); BILIRUBIN NEGATIVE (NEGATIVE); COLOR YELLOW (YELLOW); GLUCOSE NEGATIVE (NEGATIVE); KETONE NEGATIVE (NEGATIVE); LEUKOCYTE ESTERASE TRACE (NEGATIVE); NITRITE NEGATIVE (NEGATIVE); PROTEIN NEGATIVE (NEGATIVE); SPECIFIC GRAVITY 1.015 (1.005-1.020); UROBILINOGEN NORMAL (NORMAL)
[2016-12-06 10:12] LABS: HYALINE CAST OCC /lpf (NONE SEEN); MUCUS <1+ /lpf (NONE SEEN); RED CELLS - URINE 0-5 /hpf (0-5); WHITE CELLS - URINE 0-5 /hpf (0-5)
[2016-12-06 10:15] LABS: BACTERIA MODERATE /hpf (NONE SEEN); YEAST <1+ /hpf (NONE SEEN)
--- NOTE | 2016-12-06 10:15 | NUR ---
SPOKE WITH CYN IN SURGERY TO LET HIM KNOW THAT DR ROSARIO SAID HE WAS NOT TAKING THE PATIENT TO SURGERY TODAY.
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
--- NOTE | 2016-12-06 12:20 | NUR ---
IN THE PATIENTS ATTEMPTS TO GET OUT OF BED, SHE HAS OPENED UP ANOTHER SCAB ON THE LATERAL ASPECT OF HER RIGHT KNEE. THIS AREA WAS DRESSED.
--- NOTE | 2016-12-06 13:44 | NUR ---
KANWAL WITH CASEMANAGEMENT IN TALKING WITH PATIENT.
--- NOTE | 2016-12-06 14:12 | NUR ---
PATIENT HAS BEEN ACCEPTED TO SENIOR, DR DONOHUE HERE. CALL PLACED TO DR WHITFIELD TO LET HIM KNOW SHE IS ACCEPTED AND RECEIVE ORDERS.
--- NOTE | 2016-12-06 14:19 | NUR ---
SPOKE WITH CHRISTOPHER GOODMAN FOR DR WHITFIELD. INFORMATION WAS GIVEN ABOUT ACCEPTANCE TO NURSING HOME. SHE WILL GET WITH DR WHITFIELD AND CALL ME BACK.
--- NOTE | 2016-12-06 14:40 | NUR ---
SPOKE WITH DR WHITFIELD. HE IS NOT OK WITH THE PATIENT GOING FROM ICU TO [facility]. HE STATED THAT HE WANTS THE PATIENT ON THE FLOOR FOR A COUPLE OF DAYS BEFORE TRANSFERRING DOWN THERE, BUT TO ASK THEM TO PLEASE HOLD THE BED. HE STATED THAT SHARONA MERCEDES STOPPED THE TRANSFER TO THE FLOOR SECONDARY TO PATIENT HAVING SURGERY. EXPLAINED THE CONVERSATION THAT THIS NURSE HAD WITH DR ROSARIO THIS MORNING AND THAT THE PATIENT WOULD NOT BE HAVING SURGERY. HE STATED THAT HE HAD A MESSAGE TO CALL MAGO AND HE WOULD CALL HER AND FIGURE OUT WHAT IS GOING ON. CALL ENDED.
--- NOTE | 2016-12-06 14:47 | NUR ---
HAVE MADE 4 ATTEMPTS TO CONTACT JOHN IN [facility] TO GIVE AN UPDATE. EACH TIME THE PHONE RINGS 10-12 TMES AND THEN YOU GET A BUSY SIGNAL. WILL TRY AGAIN LATER.
--- NOTE | 2016-12-06 15:20 | NUR ---
ALL OF THE PATIENTS DRESSINGS HAVE BEEN CHANGED AGAIN. SHE IS MOVING SO MUCH IN THE BED TRYING TO GET UP THAT THEY HAVE BEEN MOVED AND SHE HAS GOTTEN HER AREA'S BLEEDING AGAIN.
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
--- NOTE | 2016-12-06 16:17 | NUR ---
SPOKE WITH JOHN IN ASSISTED AND EXPLAINED WHY THE PATIENT WAS NOT COMING TO THE UNIT TODAY. SHE SAID SHE WOULD MAKE NOTE OF IT AND LET ARRON KNOW.
--- NOTE | 2016-12-06 16:40 | NUR ---
OFFERED PATIENT DINNER. SHE TOLD ME "NO, GO ON". WILL TRY AGAIN TO OFFER FOOD BEFORE THEY BARREL INSPECTOR TIGHT TRAYS.
--- NOTE | 2016-12-06 16:45 | NUR ---
PLEASE NOTE, PATIENT IS ALSO REFUSING MEDICATIONS.
--- NOTE | 2016-12-06 17:19 | NUR ---
PATIENT IN BED SIDEWAYS. ASSISTED BACK INTO BED THE CORRECT WAY WITH THE ASSISTANCE OF SHARONA MURRELL. IT WAS NOTED AT THIS TIME THAT THE PATIENT HAS OPENED UP A SCAB ON THE BACK OF HER LEFT HAND. THIS AREA WAS ALSO COVERED SECONDARY TO BLEEDING. PATIENT DID REQUEST HINTON BEANS AND CORN BREAD. A DIETARY MESSAGE WAS SENT TO THE KITCHEN. THEY CALLED BACK AND SAID THEY HAVE NO HINTON BEANS AND WERE UNSURE OF THE CORNBREAD. THEY STATED THEY HAD RUSSO BEANS. THIS WAS OFFERED TO THE PAIENT AND SHE REFUSED. SO AT THIS TIME THE PATIENT IS STILL NOT EATING. WILL CONTINUE TO MONITOR.
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
--- NOTE | 2016-12-06 21:31 | NUR ---
NO VISITORS. PT REFUSES MEDS AND WILL NOT DRINK ANY JUICE. PT GRABBING AT STAFF AND YELLING "LEAVE ME ALONE". WILL CONT CLOSE MONITORING.
--- NOTE | 2016-12-06 23:00 | NUR ---
PT PULLED DSG OFF L LOWER LEG - SCABS NOTED DOWN BROOKS - DSG APPLIED. STILL UNCOOPERATIVE, TRYING TO KICK AND SCRATCH STAFF. CALMS WHEN LEFT ALONE. WILL CONT CLOSE MONITORING.
[2016-12-07] VITALS (12 sets, daily range): BP systolic 106–138; BP diastolic 62–95
--- NOTE | 2016-12-07 01:31 | NUR ---
PT RESTING WITH EYES CLOSED AT THIS TIME. NO SIGN OF DISTRESS.
--- NOTE | 2016-12-07 02:30 | NUR ---
TEMP 96.5, WARM BLANKETS APPLIED.
--- NOTE | 2016-12-07 03:15 | NUR ---
COMPLETE BATH AND LINEN CHANGE DONE. PT SOMEWHAT COOPERATIVE WITH DISTRACTION. DSG CHANGES TO R WRIST W-D PER MD ORDER, AND L FOREARM SKIN TEARS. PT HAD PAIN PILL PER REQUEST. AFTER BATH - PT RESTING QUIETLY, WILL CONT CLOSE MONITORING.
[2016-12-07 03:25] LABS: BASOPHILS 0 % (0.0-2.0); EOSINOPHILS 1.4 % (0-7); HEMATOCRIT 29.6 % (36.0-48.0); HEMOGLOBIN 9.7 g/dL (12-16); LYMPHOCYTES 12.2 % (15-50); MCH 29.8 pg (26.0-34.0); MCHC 32.8 g/dL (31.0-37.0); MCV 90.8 fL (80.0-100.0); MEAN PLATELET VOLUME 11.3 fL (7.4-10.4); MONOCYTES 7.2 % (2-11); NEUTROPHILS 79.2 % (40-80); PLATELET COUNT 79 10x3/uL (130-400); RBC 3.26 10x6/uL (4.00-5.40); RDW 17.8 % (11.5-14.5); WBC 2.2 10x3/uL (4.8-10.8)
[2016-12-07 03:32] LABS: ANION GAP 4.7 mmol/L (8-16); CALCIUM 8.3 mg/dL (8.5-10.1); CARBON DIOXIDE 23.9 mmol/L (21.0-32.0); CREATININE - SERUM 4.9 mg/dL (0.6-1.3); POTASSIUM - SERUM 4.6 mmol/L (3.5-5.1)
--- NOTE | 2016-12-07 03:45 | NUR ---
GLUCOSE 62 - ABLE TO GET PT TO DRINK 1 APPLE JUICE.
--- NOTE | 2016-12-07 06:30 | NUR ---
DR. WHITFIELD HERE, SPOKE WITH SON ON PHONE. NEW ORDERS REC'D.
--- NOTE | 2016-12-07 06:49 | NUR ---
IVF STARTED PER ORDERS. RECHECK BS 139.
--- NOTE | 2016-12-07 07:00 | NUR ---
REC'D RPORT AND RESUMED CARE, AWAKE AND CONFUSED WITH GARBLED SPEECH, O2 VIA RA, SAT 97%, BEAR HUGGER IN USE TEMPORAL TEMP 97.5, MULTI SCABS/SORES AND BANDAGES FROM HEAD TO TOE, RIGHT IJ TL WITH CDI DRESSING, FOLLOWS SOME COMMANDS, YELL FOR KEKE TO LETS GO, PICKING DRESSINGS OFF, ASSESSMENT COMPLETED PER FLOWSHEET, WILL CONTINUE WITH POC
--- NOTE | 2016-12-07 09:53 | NUR ---
OOB, UP AND AMBULATING, TOLERATING WITHOUT DIFFICULTY
--- NOTE | 2016-12-07 09:55 | NUR ---
OOB, UP AND AMBULATING, TOLERATED UNTIL REACHED BEDSIDE, WENT LIMP, BECAME A TOTAL LIFT TO PLACE BTB, BTB WITH PERSONNEL X2, RECONNECTED TO ICU MONITORS VSS, COMBATIVE WITH HANDS AND FEET
--- NOTE | 2016-12-07 11:00 | NUR ---
LEGS HAND OVER SIDE OF BED, AGITATED NO EASILY REDIRECTED, KICKING AND PUNCHING, REPOSITIONED WITH PERSONNEL X2, NO OTHER ACUTE CHANGE FROM PREVIOUS ASSESSMENT
--- NOTE | 2016-12-07 12:00 | NUR ---
SON AT BEDSIDE, STATUS UPDATE, VOICES NO NEEDS AT THIS TIME
--- NOTE | 2016-12-07 12:35 | NUR ---
LEGS HANGING OVER SIDE OF PADDED RAILS, REPOSITIONED BACK IN BED, INCONTINENT OF PASTY STOOL, SKINCARE AND LINEN CHANGE COMPLETED
--- NOTE | 2016-12-07 16:00 | NUR ---
I AND O'S COMPLETE, 150 CC URINE TO BEDPAN, SKINCARE AND LINEN CHANGE COMPLETED
--- NOTE | 2016-12-07 16:16 | NUR ---
PC TO DR WHITFIELD RE:RESTLESSNESS, ORDER GIVEN FOR HALDOL 5MG IM ONE TIME DOSE AND TO CONSULT PRISON MD FOR FURTHER ORDERS
--- NOTE | 2016-12-07 16:30 | NUR ---
TO ROOM FOR HALDOL 5MG IM, HANGING OVER SIDE OF BED TANGELED IN WIRES, BACK TO BED WITH PERSONNEL x2, REPOSITIONED UP AND TO BACK, IM INJECTION GIVEM, PC TO DR WHITFIELD, ORDER FOR LUIS DANIEL BED GIVEN, FSBS 119, NO INTERVENTION AT THIS TIME
--- NOTE | 2016-12-07 19:00 | NUR ---
REPORT RECIEVED, INITIAL ASSESSMENT COMPLETE, PLEASE SE FLOW SHEETS FOR DETAILS. LUIS DANIEL BED OF FLOOR FOR PT, AM NURSE ASSISTED WITH TRANSFERING PT SAFELY TO [place] BED. ORDERS OBTAINED FOR RESTRAINT. PT IS A VERY HIGH RISK FOR FALLS AND IS SEVERELY CONFUSED. CANNOT STATE NAME, , CITY, YEAR, OR WHERE SHE IS AT. DRESSINGS NEED CHANGES ON EXTREMETIES X4. BED LOW AND LOCKED, CALL LIGHT IN REACH, VSS ATT, WILL CONTINUE TO MONITOR.
--- NOTE | 2016-12-07 21:00 | NUR ---
PT CONFUSED AND TALKING TO HERSELF, NOT YELLING OUT OR BEING DISRUPTIVE AT THIS TIME. DENIES PAIN/NEEDS AT THIS TIME. ATTEMPTED TO GIVE MEDS, WAS ABLE TO TAKE TWO BEFORE S&S OF THE POSSIBILITY OF ASPIRATION OCCURED, PT THEN REFUSED ANY FURTHER MEDICATIONS. MOVED UP IN LUIS DANIEL BED, OPENED TO ALLOW BREAK. BED LOW AND LOCKED, CALL LIGHT IN REACH. PT WAS SITTING UP AT 60 DEGREES IN BED FOR PO MED ADMINISTRATION, ON PREVIOUS OCCASIONS PT HAD NO PROBLEMS WITH THIS. WILL CONTINUE TO MONITOR, VSS ATT.
[2016-12-07 21:08] LABS: INSULIN - TOTAL 9.9 uU/mL (())
--- NOTE | 2016-12-07 23:00 | NUR ---
PT IN BED, TALKING TO HERSELF. SHE HAD REMOVED HER GOWN, THIS WAS PUT BACK ON. DENIES PAIN ATT, REQUESTED BED SALINAS TO URINATE AND THIS WAS PROVIDED. VSS ATT, WILL CONTINUE TO MONITOR.
--- NOTE | 2016-12-07 23:25 | NUR ---
SMALL BM CLEANED UP, FULL LINEN CHANGE PROVIDED. PT DID NOT URINATE. WILL CONTINUE TO MONTIOR.
[2016-12-08] VITALS (17 sets, daily range): BP systolic 89–125; BP diastolic 54–110
--- NOTE | 2016-12-08 01:00 | NUR ---
PT RESTING, MUMBLING TO SELF, DENIES PAIN/NEEDS ATT. VSS, WILL CONTINUE TO MONITOR.
--- NOTE | 2016-12-08 01:50 | NUR ---
SMALL BM CLEANED UP, DISPOSABLE PAD REPLACED. PT HAS NO OTHER NEEDS AT THIS TIME AND HAS NO S&S OF ACUTE DISTRESS. WILL CONTINUE TO MONITOR.
--- NOTE | 2016-12-08 02:49 | NUR ---
PT TEMP 96.2, PUT 2 WARM BLANKETS OVER HER. DENIES PAIN/NEEDS AT THIS TIME. NO S&S OF ACUTE DISTRESS NOTED. VSS, WILL CONTINUE TO MONITOR.
--- NOTE | 2016-12-08 03:30 | NUR ---
PT MUMBLING TO SELF ATT, TEMP UP TO 96.4. BLANKETS WERE THROWN OFF, THEY WERE PUT BACK ON ATT. DENIES PAIN/NEEDS AND NO S&S OF ACUTE DISTRESS. VSS, WILL CONTINUE TO MONITOR.
[2016-12-08 04:19] LABS: BASOPHILS 0.4 % (0.0-2.0); EOSINOPHILS 1.1 % (0-7); HEMATOCRIT 26.4 % (36.0-48.0); HEMOGLOBIN 8.7 g/dL (12-16); LYMPHOCYTES 12.9 % (15-50); MONOCYTES 10.3 % (2-11); NEUTROPHILS 75.3 % (40-80); PLATELET COUNT 83 10x3/uL (130-400); RDW 18.1 % (11.5-14.5); WBC 2.6 10x3/uL (4.8-10.8)
[2016-12-08 04:31] LABS: ANION GAP 16.1 mmol/L (8-16); CALCIUM 7.8 mg/dL (8.5-10.1); CARBON DIOXIDE 23.5 mmol/L (21.0-32.0); CREATININE - SERUM 4.9 mg/dL (0.6-1.3); MAGNESIUM - SERUM 2.3 mg/dL (1.8-2.4); POTASSIUM - SERUM 4.6 mmol/L (3.5-5.1)
--- NOTE | 2016-12-08 05:00 | NUR ---
PT RESTING. STERILE CVL DRESSING PERFORMED. DATED AND SIGNED. DENIES PAIN/NEEDS ATT. VSS, WILL CONTINUE TO MONITOR.
--- NOTE | 2016-12-08 08:00 | NUR ---
SHIFT ASSESSMENT VIA FLOWSHEET, SEE FOR DETAILS.
--- NOTE | 2016-12-08 08:50 | NUR ---
NUTRITION MONITORING & EVAL CHART REVIEWED. PT NOW IN LUIS DANIEL BED. NOTE POSSIBLE PEG, HD. RD FOLLOWING
--- NOTE | 2016-12-08 09:10 | NUR ---
NO VISITORS AT THIS TIME. PT PULLING AT GOWN AND BEDDING, MUMBLING TO SELF.
[2016-12-08 09:18] LABS: HEPATITIS C ANTIBODY <0.1 (0.0-0.9)
--- NOTE | 2016-12-08 11:00 | NUR ---
REASSESSMENT VIA FLOWSHEET, SEE FOR DETAILS.
--- NOTE | 2016-12-08 12:05 | NUR ---
PT'S SON AT BEDSIDE. PT AROUSES TO HIS VOICE AND LIGHT TOUCH.
--- NOTE | 2016-12-08 14:10 | NUR ---
PT BATHED AND DRESSINGS CHANGED.
--- NOTE | 2016-12-08 15:00 | NUR ---
REASSESSMENT VIA FLOWSHEET, SEE FOR DETAILS.
--- NOTE | 2016-12-08 18:05 | NUR ---
SON AT BEDSIDE, PT RESTING WITH EYES CLOSED, PACED AT 60 ON CM.
--- NOTE | 2016-12-08 19:00 | NUR ---
REPORT RECIVED, INITIAL ASSESSMENT COMPLETE, PLEASE SEE FLOW SHEETS FOR DETAILS. PT USES INCOMPREHENSIBLE SOUNDS TO RESPONSES TO QUESTIONS. MODERATE WEAKNESS IN ALL EXTREMITIES NOTED. FRESH BANDAGES ON ALL EXTREMETIES. PT IS CALM AND UNDER TWO WARM BLANKETS ATT, WILL MONITOR TEMPS. BED LOW AND LOCKED, LUIS DANIEL BED IN USE, SIDES CLOSED AND SECURED. CALL LIGHT IN REACH. VSS ATT, WILL CONTINUE TO MONITOR.
--- NOTE | 2016-12-08 21:00 | NUR ---
PT RESTING, DOES NOT ANSER QUESTIONS, MUMBLES TO SELF. BED LOW AND LOCKED, CALL LIGHT IN REACH, VSS, WILL CONTINUE TO MONITOR.
--- NOTE | 2016-12-08 23:00 | NUR ---
PT RESTING, TEMP INCREASED TO 96.3, REFUSED MORE BLANKETS, BUT IS COVERED UP. MUMBLES INCOMPREHENSIBLE SOUNDS AND ALSO SAYS INAPPROPRIATE WORDS/STATEMENTS FOR SITUATION. PT TURNS SELF AROUND IN BED ON REGULAR BASIS. VSS ATT, WILL CONTINUE TO MONITOR.
[2016-12-09] VITALS (21 sets, daily range): BP systolic 80–112; BP diastolic 52–78
--- NOTE | 2016-12-09 01:00 | NUR ---
PT RESTING, NO S&S OF ACUTE DISTRESS NOTED, RR EVEN AND UNLABORED. VSS, WILL CONTINUE TO MONITOR.
--- NOTE | 2016-12-09 01:56 | NUR ---
CLEANED UP INCONTINENCE OF URINE, FULL LINEN CHANGE AND PERTIAL BATH GIVEN. FEET UP ON PILLOW, WARM BLANKETS PUT ON PT. CURRENT TEMP 96.6. VSS, WILL CONTINUE TO MONITOR.
--- NOTE | 2016-12-09 03:00 | NUR ---
PT RESTING, NO S&S OF ACUTE DISTRESS NOTED. BED LOW AND LOCKED, CALL LIGHT IN REACH, VSS ATT, WILL CONTINUE TO MONITOR.
--- NOTE | 2016-12-09 05:00 | NUR ---
PT RESTING, NO S&S OF ACUTE DISTRESS NOTED. VSS ATT, BED LOW AND LOCKED, CALL LIGHT IN REACH, WILL CONTINUE TO MONITOR.
--- NOTE | 2016-12-09 05:27 | NUR ---
PT BLOOD SUGAR WAS 54, GAVE 25ML OF 50% DEXTROSE, RECHECKED AND BLOOD SUGAR 125.
[2016-12-09 05:45] LABS: BASOPHILS 0.4 % (0.0-2.0); EOSINOPHILS 1.4 % (0-7); HEMATOCRIT 26.6 % (36.0-48.0); HEMOGLOBIN 8.7 g/dL (12-16); IMMATURE GRANULOCYTES 0.4 % (0-5); LYMPHOCYTES 12.5 % (15-50); MCHC 32.7 g/dL (31.0-37.0); MCV 91.7 fL (80.0-100.0); MONOCYTES 7.9 % (2-11); NEUTROPHILS 77.4 % (40-80); PLATELET COUNT 81 10x3/uL (130-400); RDW 18.5 % (11.5-14.5); WBC 2.8 10x3/uL (4.8-10.8)
[2016-12-09 05:59] LABS: ANION GAP 13.4 mmol/L (8-16); CALCIUM 7.7 mg/dL (8.5-10.1); CARBON DIOXIDE 24.1 mmol/L (21.0-32.0); CREATININE - SERUM 5.1 mg/dL (0.6-1.3); POTASSIUM - SERUM 4.5 mmol/L (3.5-5.1)
[2016-12-09 08:07] LABS: INR 1.43 (0.85-1.17); PROTIME 17.4 SECONDS (11.6-15.0)
[2016-12-09 08:12] LABS: ALBUMIN 1.7 g/dL (3.4-5.0); BILIRUBIN - DIRECT 0.22 mg/dL (0.00-0.30); BILIRUBIN - INDIRECT 0.27 mg/dL (0.00-1.00); BILIRUBIN - TOTAL 0.49 mg/dL (0.2-1.3); PROTEIN - SERUM 4.9 g/dL (6.4-8.2)
--- NOTE | 2016-12-09 13:44 | NUR ---
1400- DSNG CHANGED TO RT WRIST WTD.
--- NOTE | 2016-12-09 18:52 | NUR ---
FSBS 62 D50 GIVEN ORDERED, CIELO DONE 30MIN AFTER DOSE AND FSBS 133.
--- NOTE | 2016-12-09 19:30 | NUR ---
ASSESSMENT COMPLETE. S1S2. PT RESTRAINED INTO A LUIS DANIEL BED. PT LETHARGIC/CONFUSED. PERRLA. UNABLE TO FOLLOW COMMANDS; LOCALIZED PAIN. PT PICKING AT SCABS ON BODY; PRODOMINATELY ON ARMS. DRESSINGS APPLIED. EXPIRITORY WHEEZING NOTED BILATERALLY TO UPPER LOBES; DIMINISHED BILATERALLY TO LOWER LOBES. PT SPEECH GARBLED. BRUISING; SCABS/SORES; SKIN TEARS; REDDENED AREAS NOTED GENERALIZED ALL OVER BODY.
--- NOTE | 2016-12-09 23:05 | NUR ---
REASSESSMENT COMPLETE. NO CHANGES FROM PREVIOUS ASSESSMENT. WILL CONTINUE TO MONITOR.
--- NOTE | 2016-12-09 23:42 | NUR ---
PT BLOOD SUGAR 74. 25ML 50% DEXTROSE GIVEN.
[2016-12-10] VITALS (24 sets, daily range): BP systolic 90–144; BP diastolic 52–79
--- NOTE | 2016-12-10 03:00 | NUR ---
REASSESSMENT COMPLETE. NO CHANGES FROM PREVIOUS ASSESSMENT.
--- NOTE | 2016-12-10 06:33 | NUR ---
PT RESTING; EYES CLOSED. VSS. NO DISTRESS NOTED. WILL CONTINUE TO MONITOR.
--- NOTE | 2016-12-10 08:26 | NUR ---
PATIENT'S NURSE, TAINA, REPORTS THAT PATIENT'S SON, MARIXA, PHONED YESTERDAY. HE STATES HE KNOWS SHE DOES NOT HAVE A QUALITY OF LIFE AND IS READY FOR THIS TO BE OVER FOR HER. HE WILL COME TO THE HOSPITAL THIS AM AT 0900 TO MEET WITH HOSPICE. I HAVE SPOKEN WITH PORFIRIO STEARNS AND SHE IS SENDING SOMEONE TO MEET WITH HIM. CM TO FOLLOW.
--- NOTE | 2016-12-10 09:24 | NUR ---
NUTRITION MONITORING & EVAL CHART REVIEWED. NOTE HOSPICE EVAL PENDING. RD FOLLOWING
--- NOTE | 2016-12-10 10:41 | NUR ---
[facility] NURSE CAME TO MEET WITH PATIENT'S DON, ABDIEL RAMEY. HE WAS VERY EMOTIONAL AND STATES TO ME HE WANTS TO LEAVE. HE SPOKE WITH DR. RODRIGUEZ AND HOSPICE. HE DID NOT SIGN PAPERS. HE TOOK THEM AND STORMED OUT OF THE UNIT. HE STATED TO THE HOSPICE THAT HE DOES NOT WANT HER TO BE RESUSITATED IF HER HEART STOPS. WE WILL AWAIT DECISION FROM HIM ON HOSPICE. CM TO FOLLOW.
--- NOTE | 2016-12-10 10:45 | NUR ---
PT'S SON HERE AT VISITING TIME THIS AM, DR RODRIGUEZ SPOKE TO HIM RE: HOSPICE, CM ALSO SPOKE TO HIM AND HE AGREES TO SEE HOSPICE STAFF. HOSPICE STAFF SPEAK TO PT'S SON AND HE DID NOT WANT TO SIGN PAPERS.
--- NOTE | 2016-12-10 11:03 | NUR ---
HOSPICE NURSES STATE THAT THE PTS SON DID WANT DNR TO BE CODE STATUS. PHONED ABDIEL PT'S SON AND HE DID NOT ANSWER AT PRESENT. MESSAGE LEFT FOR HIM TO Call back.
--- NOTE | 2016-12-10 12:45 | NUR ---
1245- PT'S SONN CALLED BACK. SPOKE TO HIM RE: CODE STATUS. PT'S SON ABDIEL STATES THAT HE DOES NOT WANT CPR OR ANY HEROIC MEASURES. HE REPORTS THAT SHE HAS NO QUALITY OF LIFE.
--- NOTE | 2016-12-10 19:30 | NUR ---
Assessment complete. See flowsheet. Pt resting in [place] bed with VSS. NO s/s pain or distress. Pt awakens to verbal stimulation with speech garbled. Pupils size 3 bilaterally ERRL. Speech garbled. Pt oriented to person only. O2 RA. Respirations shallow/unlabored. Lung sounds present crackles to all ortiz. HR paced 60bpm with S1S2 auscultated. Radial pulses +1 bilaterally with dorsalis pedis pulses weak/palpable bilaterally. Right IJ CVL site CDI with D5NS infusing @ 30cc/hr. BS present to all quadrants. Pt linens clean/dry. Pt pulled up and positioned to left side. HOB @ 20 degrees. Arms and heels bridged. Temp 98.2F orally. NO s/s pain or distress. Right arm fistula site dressing CDI. CPOC.
--- NOTE | 2016-12-10 21:30 | NUR ---
Pt repositioned to right side. VSS. Pt remains lethargic; no neuro changes to note. Arms and heels remain bridged. Linens clean and dry. CPOC.
--- NOTE | 2016-12-10 23:30 | NUR ---
Reassessment complete. See flowsheet. Pt resting and awakens to verbal stimulation with no neuro changes to note from previous assessment. Pt placed on O2 @ 2L NC for SPO2 91%. Respirations remain shallow/unlabored. Lung sounds continue to present crackles to all ortiz. Pt does not deep breathe or cough to command. HR remains paced @ 60bpm with S1S2 auscultated. CVl site CDI with NO IVF changes to note. BS +. Linens remain clean and dry. Pt pulled up in bed and positioned to back with HOB elevated to 30 degrees. NO s/s pain or distress. No other changes to note. Right forearm fistula site dressing remains CDI; unchanged. Call light within pt reach. CPOC.
[2016-12-11] VITALS (23 sets, daily range): BP systolic 111–175; BP diastolic 67–120
--- NOTE | 2016-12-11 01:30 | NUR ---
Pt repositioned to left side. HOB @ 30 degrees. Linens remain clean and dry. No other changes to note. CPOC.
--- NOTE | 2016-12-11 03:30 | NUR ---
Reassessment complete. See flowsheet. Pt pulled up in bed. Bed bath with gown and linen changes completed. Pt repositioned to back with HOB elevated to 30 degrees. Arms and heels rebridged. VSS. No neuro changes to note. O2 @ 2L NC. Lung sounds continue to present fine crackles to all ortiz. HR paced @ 60BPM. S1S2 auscultated. CVL site CDI; unchanged with NO IVF changes to note. BS remain present to all quadrants. NO s/s pain or distress. CPOC.
[2016-12-11 04:56] LABS: BASOPHILS 0.2 % (0.0-2.0); EOSINOPHILS 0.8 % (0-7); HEMATOCRIT 27.1 % (36.0-48.0); HEMOGLOBIN 8.8 g/dL (12-16); IMMATURE GRANULOCYTES 1.1 % (0-5); LYMPHOCYTES 8.4 % (15-50); MCHC 32.5 g/dL (31.0-37.0); MCV 92.5 fL (80.0-100.0); MEAN PLATELET VOLUME 12.2 fL (7.4-10.4); MONOCYTES 7.8 % (2-11); NEUTROPHILS 81.7 % (40-80); PLATELET COUNT 107 10x3/uL (130-400); RBC 2.93 10x6/uL (4.00-5.40); RDW 18.9 % (11.5-14.5); WBC 4.7 10x3/uL (4.8-10.8)
[2016-12-11 05:17] LABS: ANION GAP 17.3 mmol/L (8-16); CALCIUM 7.6 mg/dL (8.5-10.1); CARBON DIOXIDE 21.1 mmol/L (21.0-32.0); CREATININE - SERUM 5.5 mg/dL (0.6-1.3); MAGNESIUM - SERUM 2.2 mg/dL (1.8-2.4); PHOSPHOROUS 5.1 mg/dL (2.5-4.9); POTASSIUM - SERUM 4.4 mmol/L (3.5-5.1)
--- NOTE | 2016-12-11 05:30 | NUR ---
Pt resting with VSS and allowed to continue resting undisturbed
--- NOTE | 2016-12-11 05:49 | NUR ---
Blood glucose 62mg/dL D50 1/2 amp IVP administered
--- NOTE | 2016-12-11 06:20 | NUR ---
FSBS 125mg/dL
--- NOTE | 2016-12-11 19:30 | NUR ---
Assessment complete. See flowsheet. Pt awake and pulling CVL line. Dressing resecured. Right arm fistula dressing site CDI with dressing secure. Pt pulled up in bed for assessment. O2 @ 2L NC. Respirations shallow and unlabored. Pt oriented to person only and asking to get to the car. Pt reorientation attempted but remains confused to place, time and situation. Pupils size 3 bilaterally ERRL. Lung sounds present expiratory ronchi to lower lobes bilaterally. HR paced @ 60BPM. S1S2 auscultated. All peripheral pulses +1 with capillary refill <3 seconds. Right IJTL site CDI with D5NS secure infusing @ 30cc/hr. Abdomen soft with BS present to all quadrants. Linens dry/clean. Arms and heels bridged after pt repositioned to left side. NO s/s pain. CPOC.
--- NOTE | 2016-12-11 21:30 | NUR ---
Pt incontinent of black, tarry stools. Bed bath with gown and linen changes completed. Serous drainage noted from weeping left arm. Arm dressings applied with coban to secure sites. BP cuff repositioned for comfort. Pt repositioned to right side. HOB @ 30 degrees. Arms and heels rebridged. Pt reaching to fistula bangage to "take this damn thing off." Bilat soft wrist restraints resecured.
--- NOTE | 2016-12-11 23:30 | NUR ---
Reassessment complete. See flowsheet. Pt sleeping and awakens to verbal stimulation. NO neuro changes to note. O2 @ 2L NC. Lung sounds currently CTA. HR paced with S1S2 auscultated. All peripheral pulses remain weak/palpable. Dressing sites CDI; unchanged. CVL site CDI with NO IVF changes to note. Abdomen soft, non-tender with BS present to all quadrants. Fistula site unchanged. Pt repositioned to back with HOB @ 30 degrees. Arms and heels bridged. Linens clean and dry. No other changes to note. Bilat soft wrist restraints secure. CPOC.
[2016-12-12] VITALS (19 sets, daily range): BP systolic 93–168; BP diastolic 64–102
--- NOTE | 2016-12-12 01:30 | NUR ---
Pt resting with VSS. NO s/s pain or distress and allowed to continue resting undisturbed.
--- NOTE | 2016-12-12 03:30 | NUR ---
Reassessment complete. See flowsheet. Pt resting and awakens to verbal stimulation with no neuro changes to note from previous assessment. O2 @ 2L NC. Lung sounds remain CTA with diminished lower lobes. HR paced. BS +. Pt linens clean and dry. Pt repositioned to back with arms and heels rebridged. HOB @ 20 degrees. Bilat soft wrist restraints remain secure. NO other changes to note. CPOC.
[2016-12-12 04:50] LABS: BASOPHILS 0.2 % (0.0-2.0); EOSINOPHILS 2.7 % (0-7); HEMATOCRIT 28.1 % (36.0-48.0); HEMOGLOBIN 9.1 g/dL (12-16); IMMATURE GRANULOCYTES 0.4 % (0-5); LYMPHOCYTES 9.5 % (15-50); MCH 30.1 pg (26.0-34.0); MCHC 32.4 g/dL (31.0-37.0); MEAN PLATELET VOLUME 11.3 fL (7.4-10.4); MONOCYTES 5.7 % (2-11); NEUTROPHILS 81.5 % (40-80); PLATELET COUNT 95 10x3/uL (130-400); RBC 3.02 10x6/uL (4.00-5.40); RDW 19.1 % (11.5-14.5); WBC 4.8 10x3/uL (4.8-10.8)
[2016-12-12 05:06] LABS: ANION GAP 15.6 mmol/L (8-16); CARBON DIOXIDE 22.7 mmol/L (21.0-32.0); CREATININE - SERUM 5.2 mg/dL (0.6-1.3); MAGNESIUM - SERUM 2.2 mg/dL (1.8-2.4); PHOSPHOROUS 4.8 mg/dL (2.5-4.9); POTASSIUM - SERUM 4.3 mmol/L (3.5-5.1)
--- NOTE | 2016-12-12 05:30 | NUR ---
Pt repositioned to right side and resting. VSS. NO s/s pain or distress.
--- NOTE | 2016-12-12 21:00 | NUR ---
NO VISITORS AT THIS TIME, ALL HS MEDS GIVEN WITH NO DIFFICULTY. PATIENT DENIES PAIN OR OTHER NEEDS AT THIS TIME, ALL VSS AND WILL CONTINUE TO MONITOR.
--- NOTE | 2016-12-12 21:03 | NUR ---
RECEIVED PATIENT AWAKE IN BED WATCHING TV, ASSESSMENT COMPLETED PER FLOWSHEET. PATIENT IS ALERT BUT DISORIENTED TO PLACE/TIME/SITUATION, DEMEANOR IS PLEASANT BUT ARGUMENTATIVE. EYES PERRLA @ 3MM WITH BRISK RESPONSE, SCLERA IS WHITE. ORAL/NASAL MUCOSA IS DRY AND INTACT, TONGUE IS MIDLINE. S1/S2 NOTED WITH PATIENT HR OF 60 WITH PACEMAKER/DEFIBRILLATOR PRESENT. BREATHING IS UNLABORED AND SLIGHTLY SHALLOW, LUNG SOUNDS ARE DIMINISHED IN ALL LOBES. ABDOMEN IS SLIGHTLY DISTENDED AND SOFT, BOWEL SOUNDS ACTIVE X4. PATIENT VOIDS INTO BEDPAN, BLACK TARRY STTOLS WITH CONCENTRATED URINE NOTED. WEAKNESS NOTED IN ALL EXTREMITIES, UPPER EXTREMITY PULSES PALPABLE WITH WEAK PULSES NOTED IN LOWER. CVL NOTED R JUGULAR, PATENT WITH FLUIDS INFUSING. PATIENT C/O PAIN 2/10 ACHING IN BACK, REPOSITIONED FOR COMFORT. PATIENT DENIES OTHER NEEDS AT THIS TIME, ALL VSS AND WILL CONTINUE TO MONITOR.
--- NOTE | 2016-12-12 23:00 | NUR ---
REASSESSMENT COMPLETE PER FLOWSHEET, PATIENT RESTING IN BED WITH EYES CLOSED. FULL BED BATH/LINEN CHANGE PERFORMED, TOLERATED WELL. PATIENT HAD BM IN BED, STOOL WAS BLACK AND TARRY. LUNG SOUNDS ARE DIMINISHED IN ALL LOBES, BREATHING IS SHALLOW AND UNLABORED. PATIENT DENIES PAIN OR OTHER NEEDS AT THIS TIME, ALL VSS AND WILL CONTINUE TO MONITOR.
[2016-12-13] VITALS (53 sets, daily range): BP systolic 70–137; BP diastolic 38–108
--- NOTE | 2016-12-13 01:00 | NUR ---
PATIENT VOMITED LARGE AMOUNT OF YELLOW COLORED EMESIS ONTO SELF AND LINENS. PATIENT CLEANED AND LINENS CHANGED, PARTIAL BED BATH GIVEN. PATIENT STATES NO NAUSEA NOW. DRESSINGS CHANGED ON BOTH WRISTS TO EMESIS, TOLERATED WITH NO DIFFICULTIES. PATIENT DENIES PAIN OR OTHER NEEDS AT THIS TIME, ALL VSS AND WILL CONTINUE TO MONITOR.
--- NOTE | 2016-12-13 03:10 | NUR ---
REASSESSMENT COMPLETE, PATIENT RESTING IN BED WITH EYES CLOSED AND TELEVISION ON. LUNG SOUNDS DIMINISHED IN ALL LOBES, OXYGEN SAT 95% ON ROOM AIR. PATIENT IS AWARE OF SELF BUT STILL DISORIENTED TO TIME/PLACE/SITUATION, FREQUENT REORIENTATION WITH LIMITED SUCCESS. PATIENT DENIES PAIN OR OTHER NEEDS AT THIS TIME, ALL VSS AND WILL CONTINUE TO MONITOR.
[2016-12-13 05:47] LABS: ALBUMIN 1.5 g/dL (3.4-5.0); ANION GAP 11.6 mmol/L (8-16); BILIRUBIN - TOTAL 0.45 mg/dL (0.2-1.3); CALCIUM 7.7 mg/dL (8.5-10.1); CARBON DIOXIDE 23.3 mmol/L (21.0-32.0); CREATININE - SERUM 5.3 mg/dL (0.6-1.3); PHOSPHOROUS 4.6 mg/dL (2.5-4.9); POTASSIUM - SERUM 3.9 mmol/L (3.5-5.1); PROTEIN - SERUM 4.4 g/dL (6.4-8.2)
[2016-12-13 05:50] LABS: MAGNESIUM - SERUM 3.3 mg/dL (1.8-2.4)
[2016-12-13 06:05] LABS: HEMATOCRIT 24.6 % (36.0-48.0); HEMOGLOBIN 7.9 g/dL (12-16); MCHC 32.1 g/dL (31.0-37.0); MCV 93.5 fL (80.0-100.0); MEAN PLATELET VOLUME 11.3 fL (7.4-10.4); RBC 2.63 10x6/uL (4.00-5.40); RDW 18.7 % (11.5-14.5)
[2016-12-13 06:07] LABS: PLATELET COUNT 66 10x3/uL (130-400); WBC 2.5 10x3/uL (4.8-10.8)
[2016-12-13 07:26] LABS: EOSINOPHILS 2 % (0-7); LYMPHOCYTES 6 % (15-50); NEUTROPHILS 82 % (40-80); PLATELET ESTIMATE DECREASED
[2016-12-13 07:27] LABS: ANISOCYTOSIS 1+; CRENATED CELLS OCC; SCHISTOCYTES OCC
--- NOTE | 2016-12-13 08:39 | NUR ---
WHEN EXPLAINED TO PATIENT THAT I WAS BRINGING HER HER MORNING MEDICATIONS. SHE STATED THAT SHE WAS NOT TAKING ANYTHING. SHE SAID SHE ALREADY TOOK HER MEDICATIONS. TRIED TO EXPLAINE THAT SHE HAS NOT TAKEN HER MEDICATIONS AND SHE IS ADAMENT THAT SHE IS NOT TAKING HER MEDICATIONS.
--- NOTE | 2016-12-13 09:08 | NUR ---
PATIENT C/O PAIN. CALL PLACED TO DR WHITFIELD'S OFFICE. MESSAGE LEFT WITH CHRISTOPHER ELIAS.
--- NOTE | 2016-12-13 09:20 | NUR ---
RETURN CALL FROM CHRISTOPHER ELIAS. SHE STATED THAT DR WHITFIELD SAID HE IS NOT COMFORTABLE GIVING THE PATIENT PAIN MEDICATION AT THIS TIME. THAT HE WOULD CONSIDER BIOFREEZE OR A HEAT PAD. THIS WAS EXPLAINED TO THE PATIENT AND SHE JUST CLOSED HER EYES AND LOOKED AWAY FROM THIS NURSE.
--- NOTE | 2016-12-13 09:44 | NUR ---
NUTRITION MONITORING & EVAL CHART REVIEWED. SPOKE WITH NURSING. PT WITH NO PO INTAKE. CURRENTLY SLEEPING. DNR. RD FOLLOWING
--- NOTE | 2016-12-13 12:18 | NUR ---
PTS BLOOD SUGAR 56, HALF AN AMP OF D50 GIVEN PER PRN ORDERS. WILL RECHECK BLOODSUGAR IN 30 MINUTES.
--- NOTE | 2016-12-13 12:42 | NUR ---
PATIENTS BLOOD PRESSURE 76/46 (54). HR 61, RR 15, SATS 97% ON ROOM AIR. MADE SURE TO WAKE PATIENT UP WELL. UNABLE TO GET THE BLOOD PRESSURE TO GO UP. DR ROSEANN CENTENO.
--- NOTE | 2016-12-13 13:16 | NUR ---
@[address] QIU ORDERS. IT WAS TITRATED UNTIL B/P HOLDING 98/54 (70). IT IS CURRENTLY ON 15MCG/KG/MIN. WILL CONTINUE TO MONITOR.
--- NOTE | 2016-12-13 13:42 | NUR ---
CALL PLACED TO SON ABDIEL TO DISCUSS PATIENTS CHANGE IN CONDITION. MESSAGE LEFT. WILL WAIT FOR RETURN CALL.
--- NOTE | 2016-12-13 13:43 | NUR ---
SPOKE WITH ABDIEL. EXPLAINED ABOUT PATIENTS BLOOD PRESSURE AND THAT SHE WAS STARTED ON A DOPAMINE DRIP. SPOKE WITH HIM AGAIN ABOUT HOSPICE AND COMFORT CARE. HE SAID HE WAS OK WITH HER BEING ON HOSPICE, BUT HE DID NOT WANT TO SIGN THE PAPERWORK AND HIM BE HELD RESPONSIBLE FOR SOMETHING. HE SAID HE COULD NOT AFFORD TO BE RESPONSIBLE AND DOES NOT WANT TO LOOSE THE HOUSE. HE SAID THAT HE DID NOT WANT US DOING ANYTHING BUT KEEPING HER COMFORTABLE. ASKED HIM WHAT HE MENT BY THAT. CLARIFIED ABOUT THE DRIP. HE SAID THAT IF IT WASN'T MAKING HER COMFORTABLE THAT HE DID NOT THINK SHE NEEDED IT. SPOKE WITH SHARONA SCHOFIELD CASEMANAGER ABOUT OUR CONVERSATION. WILL WAIT TO HEAR BACK FROM HER ON WHAT THE NEXT STEP WILL BE.
--- NOTE | 2016-12-13 13:45 | NUR ---
PATIENTS B/P 122/10 (111), DOPAMINE DRIP DECREASED TO 10 MCG/KG/MIN. WILL CONTINUE TO MONITOR.
--- NOTE | 2016-12-13 14:05 | NUR ---
PTS B/P 137/71 (96) DECREASED DOPAMINE TO 5 MCG/KG/MIN. WILL CONTINUE TO MONITOR.
--- NOTE | 2016-12-13 15:08 | NUR ---
SBP 129. DECREASED TO 1 MCG/KG/MIN. WILL MONITOR. IF REMAINS UP WILL STOP DRIP.
--- NOTE | 2016-12-13 15:26 | NUR ---
SATS IN THE 80'S, OXYGEN AT 2L N/C APPLIED. SATS UP TO 94-96%
--- NOTE | 2016-12-13 17:02 | NUR ---
HOSPICE UNSUCCESSFUL TALKING WITH PATIENTS SON. HE IS NOT WILLING TO SIGN THE PAPERS. DR WHITFIELD PAGED TO LET HIM BE AWARE OF THIS AND TO LET HIM KNOW THE SON SAID THAT IF THE MEDICATION FOR HER BLOOD PRESSURE IS NOT MAKING HER MORE COMFORTABLE HE DID NOT WANT IT.
--- NOTE | 2016-12-13 17:06 | NUR ---
SPOKE WITH DR WHITFIELD. HE SAID THAT WE ARE GOING TO KEEP THE DRIP GOING. HE STATED THAT HE WOULD REALLY LIKE FOR [facility] TO TALK WITH THE SON. IT WAS EXPLAINED THE FEARS THE SON IS HAVING AND DR WHITFIELD FEELS THAT [facility] CAN BETTER TALK WITH THE SON.
--- NOTE | 2016-12-13 17:10 | NUR ---
SPOKE WITH SHARONA SCHOFIELD AND EXPLAINED THE CONVERSATION BETWEEN THIS NURSE AND DR WHITFIELD. SHE WILL WORK ON CONTACTING [facility].
--- NOTE | 2016-12-13 17:50 | NUR ---
SPOKE WITH EDMOND ROBISON, RN WITH [facility]. PER DR QIU REQUEST, SHE WILL MAKE ATTEMPTS TO CONTACT THE SON ABOUT PATIENT GOING GIP AT THEIR HOSPICE UNIT.
--- NOTE | 2016-12-13 18:19 | NUR ---
PATIENTS SON HERE. TALKED TO HIM ABOUT HOSPICE AND ASKED HIM TO PLEASE RETURN EITHER [facility] OR [facility]'S PHONE CALL AND TALK WITH THEM. EXPLAINED THAT THEY WILL BILL HER MEDICARE AND THAT PER THE REPS FOR EACH HOSPICE, HE WILL NOT RECEIVE A BILL. EXPLAINED THAT IS WHY THEY ARE TRYING TO GET AHOLD OF HIM, TO LET HIM KNOW THIS. HE SAID THAT HE DOES NOT WANT HIS MOM MOVED TO THE OTHER HOSPITAL. HE IS RUNNING HOME TO GET THE PAPERWORK FOR [facility] AND HE SAID HE WOULD BE BACK WITH THE PAPERWORK. DISCUSSED THIS WITH SHARONA SCHOFIELD CASEMANAGER. SHE WILL CALL [facility] AND [facility] [place].
--- NOTE | 2016-12-13 18:29 | NUR ---
Patient is hypotensive. Started on dopamine drip today. Blood pressure dropped into the 70/ IVFS at 75/cc/hr. Continues IV Merrem q12h. Open wound right wrist continue wound care and IVAB's. Continues IV Synthroid. O2 sat dropped into the 80's. Nasal O2 applied at 2/L. . Son wants comfort care. Is afraid of losing their home if he signs hospice.
--- NOTE | 2016-12-13 18:31 | NUR ---
DR WHITFIELD PAGED TO LET HIM KNOW THAT AFTER A LONG CONVERSATION, THE SON HAS DECIDED TO GO WITH HOSPICE. HE DOES NOT WANT HER MOVED ACROSS TOWN, HE WANTS HER TO STAY HERE. HE HAS AGREED TO GO WITH [facility]. HE HAS GONE HOME TO GRAB THE LEGAL PAPERWORK THAT HE WAS GIVEN ON TUESDAY AND WILL BE BACK WITH THE PAPERWORK. WILL ASKE FOR ORDER TO ADMIT GIP IF APPROPRIATE.
--- NOTE | 2016-12-13 18:34 | NUR ---
SPOKE WITH DR WHITFIELD. ORDER RECEIVED TO EVAL AND ADMIT TO GIP IF APPROPRIATE.
--- NOTE | 2016-12-13 18:46 | NUR ---
SPOKE WITH CORINNA RN WITH [facility]. EXPLAINED THE CHANGE IN THE PATIENT AND THAT THE SON IS WILLING TO DO [facility]. SHE STATED THAT ON TUESDAY THE PATIENT DID NOT MEET FOR [facility]. EXPLAINED THAT RIGHT NOW SHE IS ON OXYGEN TO MAINTAIN SATS, THAT WE HAVE HER ON A DOPAMINE DRIP TO KEEP HER BLOOD PRESSURE UP, ALSO THAT SHE HAS BECOME UNRESPONSIVE YET SHE STILL FURROWS HER BROW THOUGH SHE MAY BE IN PAIN AT TIMES. AND ALSO EXPLAINED THAT THIS AM SHE WAS COMPLAINING OF PAIN FROM HEAD TO TOE, BUT THAT DR WHITFIELD WAS NOT COMFORTABLE ORDERING HER SOMETHING FOR PAIN. ALSO EXPLAINED THAT SHE WAS BECOMING MORE HYPOTENSIVE. LAST TEMP 97.1. [place] WOULD BE HERE IN ABOUT AN HOUR AND A HALF. THIS WAS EXPLAINED TO THE SON. HE STATED HE WOULD WAIT UNTIL SHE GOT HERE.
--- NOTE | 2016-12-13 18:50 | NUR ---
Late Entry 1720 CM received telephone call from primary nurse, Caitlyn. DR Freire had spoken w/ her and wanted a referral sent to [facility]. TC to [facility]. Received CB from Casandra, the on-call nurse. Discussed referral and clinical update. Provided telephone number for Casandra to speak with the primary nurse, Caitlyn. Patient' son had visited this AM. He normally visits at 0900 and 1500 visiting hrs. He did not visit at 1500 this PM. The son had been avoiding the [facility] phone call from Mary Mosquera. He had misunderstood and thought the house would be taken. Mary wanted to clarify & answer son's question. Patient' son visited at 1800. Spoke w/ the nurse. Decided he would go with [facility] as his mother would stay at [facility] and not be moved to [facility]. He wants comfort care for his mother. TC to [facility]. Caitlyn spoke with the on-call nurse. She will visit w/ the son this PM. The son reportedly went to get the hospice paperwork.
--- NOTE | 2016-12-13 19:30 | NUR ---
REPORT RECEIVED AND CARE ASSUMED. PT AWAITING HOSPICE TO COME AND EVALUATE FOR ADMISSION. SON AT BEDSIDE. INITIAL SHIFT ASSESSMENT COMPLETED SEE FLOWSHEET. PT IS BEING MONITORED PER STANDARD ICU PROTOCOL WITH ALL ALARMS SET AND VERIFIED. PT IS CURRENTLY ON DOPAMINE TO MAINTAIN ADEQUATE B/P WILL TITRATE NEEDED
--- NOTE | 2016-12-13 19:50 | NUR ---
HOSPICE HERE IN UNIT AT BEDSIDE TO EVALUATE AND SPEAK WITH SON ABOUT ADMISSION TO HOSPICE
--- NOTE | 2016-12-13 21:17 | NUR ---
Reji w/ [facility] visited w/ son at 1999 at patient's bedside. She will eval for [facility]. Primary nurse provided clinical for update. Await assessment.
--- NOTE | 2016-12-13 22:17 | NUR ---
DE. STRONG NOTIFIED THAT PT IS BEING ADMITTED TO HOSPICE
--- NOTE | 2016-12-13 23:09 | NUR ---
REPORT CALLED TO KRISTINE TABOR. PT TO BE TRANSFERRED TO ROOM 2161
== END 2016-12-13 23:04 | disposition hospice, inpatient (51) | DRG 377 ==
LOC: D.ER 07:02 → D.ICU 08:24
PROVIDERS: Emergency Medicine; Family Medicine; Internal Medicine Gastroenterology; Internal Medicine Nephrology; Internal Medicine Pulmonary Disease; ADMIT Family Medicine
PROC: 0DB68ZX Excision of Stomach, Via Natural or Artificial Opening Endoscopic, Diagnostic (ICD-10-PCS; 2016-11-28)
PROC: 0D568ZZ Destruction of Stomach, Via Natural or Artificial Opening Endoscopic (ICD-10-PCS; principal; 2016-11-28 15:00)
PROC: 05HM33Z Insertion of Infusion Device into Right Internal Jugular Vein, Percutaneous Approach (ICD-10-PCS; 2016-12-02)
PROC: B543ZZA Ultrasonography of Right Jugular Veins, Guidance (ICD-10-PCS; 2016-12-02)
DX: K31.811 Angiodysplasia of stomach and duodenum with bleeding (principal); N17.0 Acute kidney failure with tubular necrosis; I13.0 Hypertensive heart and chronic kidney disease with heart failure and stage 1 through stage 4 chronic kidney disease, or unspecified chronic kidney disease; N18.4 Chronic kidney disease, stage 4 (severe); D61.818 Other pancytopenia; T81.30XA Disruption of wound, unspecified, initial encounter; N39.0 Urinary tract infection, site not specified; F05 Delirium due to known physiological condition; E11.43 Type 2 diabetes mellitus with diabetic autonomic (poly)neuropathy; K31.84 Gastroparesis; E11.22 Type 2 diabetes mellitus with diabetic chronic kidney disease; E11.649 Type 2 diabetes mellitus with hypoglycemia without coma; D63.1 Anemia in chronic kidney disease; E03.9 Hypothyroidism, unspecified; K44.9 Diaphragmatic hernia without obstruction or gangrene; K29.70 Gastritis, unspecified, without bleeding; E88.09 Other disorders of plasma-protein metabolism, not elsewhere classified; K74.60 Unspecified cirrhosis of liver; F03.90 Unspecified dementia, unspecified severity, without behavioral disturbance, psychotic disturbance, mood disturbance, and anxiety; I50.9 Heart failure, unspecified; Z66 Do not resuscitate; Z78.1 Physical restraint status; Z95.0 Presence of cardiac pacemaker; Z91.19 Patient's noncompliance with other medical treatment and regimen

== ENCOUNTER 2016-12-13 22:38 | Inpatient (IN) | payer OTHER ==
[~2016-12-13] VITALS: Ht 160 cm; Wt 65.9 kg
--- NOTE | 2016-12-13 23:41 | NUR ---
PT ARRIVED TO FLOOR BY STRETCHER FROM ICU FOR HOSPICE CARE. RESPERATIONS EVEN AND UNLABORED ON 2LNC MORPHINE PROFESSIONAL SERVICES SPECIALIST STARTED AT A RATE OF 0.5MG/HR THROUGH EJ RIGHT SIDE PE4R ORDER FOR COMFORT CARE. WEEPING NOTED TO UPPER EXTREMITIES AND EYES OPEN PT NON VERBAL AT THIS TIME CALL LIGHT IN REACH SRX2 BED LOW AND LOCKED WILL MONITOR
[2016-12-14 01:04] VITALS: BP 106/65
[2016-12-14 03:59] VITALS: BP 106/65; Ht 160 cm; Wt 65.9 kg
[2016-12-14 08:07] VITALS: BP 98/42
--- NOTE | 2016-12-14 09:26 | NUR ---
Patient Name: SAMANTA MARI Admission Status: Elective Accout number: [id number] Admission Date: 12-13-2016 : 1940 Admission Diagnosis: Attending: CATA Current LOS: 1 Anticipated DC Date: Planned Disposition: Hospice Medical Facility Primary Insurance: [facility] EXTERNAL PROVIDER: [facility] Discharge Planning Comments: PT ADMITTED TO [facility], CM ANTICIPATES NO NEED OF CM ASSISTANCE PT'S CASE MANAGEMENT NEEDS ARE BEING MET BY [facility]. Library Supervisor: Flo Carmona
--- NOTE | 2016-12-14 10:01 | NUR ---
REPOSITIONED FOR COMFORT. ONLINE USER EXPERIENCE STRATEGIST FOR PAIN CONTROL NOTED. WILL CONT. PLAN OF CARE.
--- NOTE | 2016-12-14 12:24 | NUR ---
Nutrition Note: Chart reviewed. Pt is admitted to inpatient hospice. RD available if needed further.
--- NOTE | 2016-12-14 15:23 | NUR ---
Received report from nurse Karrie, received patient in bed, asleep slightly opens eyes to name. HR 60. Right jugular Iv with NS at KVO infusing.
[2016-12-14 20:00] VITALS: BP 69/44
--- NOTE | 2016-12-15 00:14 | NUR ---
PT VOMITED GREEN BILE, SOILING CENTRAL LINE DRESSING. CHANGED USING STERILE TECHNIQUE. CHANGED ALL LINENS AND GOWN. POSITIONED PER TURN SCHEDULE. WILL CONTINUE TO MONITOR FOR NEEDS.
--- NOTE | 2016-12-15 00:23 | NUR ---
PT RESTING QUIETLY AT THIS TIME WITH UNLABORED RESPIRATIONS. WILL CONTINUE TO MONITOR FOR NEEDS.
--- NOTE | 2016-12-15 03:51 | NUR ---
CHANGED DRESSINGS ON LEFT UPPER ARM. REPLACED WITH VASELINE GUAZE, DRY GAUZE AND OPSITE CLEAR DRESSING.
--- NOTE | 2016-12-15 03:51 | NUR ---
BATHED PT AND CHANGED ALL LINENS AND GOWN.
--- NOTE | 2016-12-15 04:49 | NUR ---
PT VERY ANXIOUS AND PULLING OFF HER GOWN AND PULLING AT TUBING. GAVE ATIVAN 0.5 MG IVP PER PRN ORDER. WILL MONITOR FOR EFFECTIVENESS. SIDE RAILS UP X2 FOR SAFETY.
--- NOTE | 2016-12-15 08:10 | NUR ---
PT UNRESPONSIVE. GUPPY BREATHING O2 ON. LOWER EXTREMTIES COLD. CHEST MOTTLED TO BREASTS. WILL CONTINUE TO MONITOR.
[2016-12-15 08:40] VITALS: BP 52/28
--- NOTE | 2016-12-15 09:49 | NUR ---
AT 0935, CALLED TO ROOM BY FAMILY. RESP HAS CEASED. NO AIR MOVEMENT NOTE. NO PULSE. [facility] CALLED. FAMILY AT BEDSIDE. O2 REMOVED AND [place] SURFACE HEATER OPERATOR DC.
--- NOTE | 2016-12-15 12:28 | NUR ---
HERE. BODY RELEASED TO THEM.
--- NOTE | 2016-12-15 12:28 | NUR ---
1108 dR. ESPINOZA PRONOUNCED PATIENT.
== END 2016-12-15 13:30 | DRG 951 ==
LOC: D.M2 22:38
PROVIDERS: ADMIT Legal Medicine
DX: Z51.5 Encounter for palliative care (principal)